=== PATIENT | male | born 2005 | race Caucasian/White ===

== ENCOUNTER 2024-03-30 10:02 | Inpatient (IN) ==
--- NOTE | 2024-03-30 10:40 | XRay Report ---
XR chest 1V portable CLINICAL HISTORY: Chest pain, nonspecific COMPARISON STUDY: No previous studies for comparison. FINDINGS: Small to moderate left pneumothorax is noted. Superior pleural separation measures 3.1 cm. There is no right pneumothorax. Lungs are clear. Cardiac size is normal. Mediastinal contours are nor mal. IMPRESSION: Small to moderate left pneumothorax. Superior pleural separation of 3.1 cm. ACT 112: Negative or not required by law. Electronically signed by: Rambo Fierro M.D. 03/30/2024 10:38 AM
[2024-03-30 10:44] LABS: Basophils # (auto) 0.05 K/uL (0.00-0.20); Basophils % (auto) 0.5 %; Eosinophils # (auto) 0.22 K/uL (0.00-0.50); Eosinophils % (auto) 2.1 %; Hematocrit (blood only) 47.2 % (42.0-52.0); Hemoglobin 16.1 g/dl (14.0-18.0); Immature Granulocytes # (auto) 0.02 K/uL (0.01-0.20); Immature Granulocytes % (auto) 0.2 %; Lymphocytes # (auto) 2.64 K/uL (1.20-3.40); Lymphocytes % (auto) 25.3 %; Mean Corpuscular Hemoglobin 29.2 pg (25.0-34.0); Mean Corpuscular Hgb Conc 34.1 g/dL (32.0-36.0); Mean Corpuscular Volume 85.7 fL (80.0-100.0); Mean Platelet Volume 8.4 fL (9.4-12.4); Monocytes # (auto) 0.79 K/uL (0.11-0.59); Monocytes % (auto) 7.6 %; Neutrophils # (auto) 6.73 K/uL (1.40-6.50); Neutrophils % (auto) 64.3 %; Platelet Count 361 K/uL (130-400); RDW Coefficient of Variation 11.9 % (11.5-14.5); RDW Standard Deviation 37.5 fL (36.4-46.3); Red Blood Count 5.51 M/uL (4.70-6.10); White Blood Count 10.45 K/ul (4.8-10.8)
[2024-03-30 11:02] LABS: Alanine Aminotransferase 11 U/L (7-52); Albumin Level 5.1 gm/dl (3.4-5.0); Alkaline Phosphatase 77 U/L (34-104); Anion Gap 7 (3-11); Aspartate Aminotransferase 16 U/L (13-39); BUN Creatinine Ratio 12.6 (10-20); Bilirubin,Total 1.3 mg/dl (0.2-1.0); Blood Urea Nitrogen 13 mg/dl (6-23); Calcium 9.7 mg/dl (8.6-10.3); Carbon Dioxide 26 mmol/L (21-32); Chloride 107 mmol/L (98-107); Creatinine Clr Calc Pharmacy 96.6 ml/min; Est GFR (African American) 120.6 ml/min; Est GFR (Non-African American) 104.1 ml/min; Globulin 2.5 gm/dl (2.5-4.0); Glucose 88 mg/dl (70-99(Fasting)); Potassium 3.8 mmol/L (3.5-5.1); Sodium 140 mmol/L (136-145); Total Protein 7.6 gm/dl (6.0-8.3)
[2024-03-30 11:05] LABS: Partial Thromboplastin Ratio 1.1; Partial Thromboplastin Time 30 Seconds (21-31); Prothrombin Time 11.2 Seconds (9.0-12.0)
--- NOTE | 2024-03-30 11:05 | Emergency Department Note ---
Impression & Plan Pneumothorax, Pleurisy, Migraines ED Provider Note NAME: ANNITA BOATENG AGE: 18 SEX: M : 2005 ARRIVES VIA: Ambulance INFORMANT: Patient, ED PROVIDER(S): Darien Ta MD CHIEF COMPLAINT: Chest pain MEDICAL DECISION MAKING: Patient presents due to concern for chest pain. IV was established and blood work was obtained along with a chest x-ray. The patient's chest x-ray does show a left-sided pneumothorax. Patient's blood work shows a normal white count H&H and platelet count. The patient was placed on nonrebreather. Kidney function is unremarkable with normal electrolytes. Bilirubin 1.3 troponin negative. Patient does appear to be comfortable. I did speak with Dr. Boggs with pulmonology who is agreeable to admit the patient with a repeat chest x-ray in about 4 hours. If it does expand would consider placing a chest tube at that time. Subsequently did speak with the on-call hospitalist service Dr. Ervin and the patient was admitted to the medicine service. Discussion w/ other healthcare providers: Dr. Mann with pulmonology Dr. Ervin with inpatient medicine service Prior /Outside records reviewed: None Differential diagnosis: Cardiac ischemia, aortic dissection, pulmonary embolism, pneumothorax, pneumonia, pericarditis, myocarditis, GERD, cholecystitis, pancreatitis, musculoskeletal, as well as other pathologies were considered. Diagnostics, as interpreted by me: ECG: Blood normal sinus rhythm, rate of 90, normal intervals, normal axis no ST elevations or TWI Cardiac monitoring: An order was placed for continuous cardiac monitoring. The monitor shows a rate of 85 with sinus rhythm. Patient was placed on pulse oximetry Medical decision rules: Heart score, Wells score Imaging studies: I informally interpreted the patient's chest x-ray does show left-sided pneumothorax with formal report to follow. HPI: Patient presents due to concern for chest pain and pain with breathing. The patient states that he was playing videogames at his desk last night and then developed some left-sided back discomfort subsequently left shoulder pain and then left-sided chest pain. The patient states that it would hurt to sleep on his left side was more comfortable on his right side. Patient denies any shortness of breath. No leg swelling or calf pain. 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 Patient was seen at urgent care and did have an x-ray performed and was referred here for further evaluation and treatment due to concern for possible pneumothorax. The patient denies any smoking alcohol or drug use. Patient does admit that if he has coughed recently he has had pain with coughing but denies any coughing fit or sneezing with subsequent pain. Patient denies any leg swelling. The patient states that he did fly here about 2 weeks ago. PAST MEDICAL HISTORY: Migraines PAST SURGICAL HISTORY: No pertinent past surgical history SOCIAL HISTORY: Patient denies alcohol tobacco or drug use. Student at the [employer]. HOME MEDICATIONS: See Below ALLERGIES: See Below VITALS: See Below PHYSICAL EXAMINATION: GENERAL: NAD, non-toxic. EYE EXAM: Normal conjunctiva. PERRL, no anisocoria and EOM's grossly intact w/o pain. OROPHARYNX: Moist mucus membranes, grossly normal dentition. NECK: Trachea midline, no stridor. LUNGS: Slightly diminished at the left apex. Normal chest wall mechanics. No increased work of breathing. Chest: No crepitus over the chest. HEART: NSR, no MRG. ABDOMEN: Abdomen soft, non-tender, no masses, no rebound or guarding. BACK: No CVA TTP. SKIN: No rashes and no bruising. UPPER EXTREMITIES: Upper extremities are grossly normal. LOWER EXTREMITIES: Grossly normal, no edema. Negative Homans' sign bilaterally NEURO EXAM: A&O x3, cranial nerves II-XII grossly intact, normal speech, moves all 4 extremities. Past Med/Surg History Problem List (Updated 03/30/24 @ 18:38 by Darien Ta MD) Chest tube in place Pleurisy (Acute) Spontaneous pneumothorax Migraines (Acute) Pneumothorax (Acute) Social History Smoking Status: Never smoker Hx Alcohol Use: No Hx Substance Use: No Preferred Language: Guyanese Landscape Nurseryman Required: No Beliefs That Will Affect Care: None Current Living Situation: Other Current Living Situation Comment: college Other Information That Helps Us Care for You: No Feels Safe at Home: Yes Safety Concerns: Feels Safe At This Time Assistive Devices: None Allergies Allergies Allergy/AdvReac Type Severity Reaction Status Date / Time No Known Allergies Allergy Unverified 03/30/24 14:54 Home Meds Home Medications Medication Instructions Recorded Confirmed rizatriptan 10 mg tablet 10 mg ONCE PRN Migraine Headache 03/30/24 03/30/24 topiramate 25 mg tablet 50 mg HS 03/30/24 03/30/24 Results & Data (ED) Vital Signs Vital Signs - 24 hr 03/30/24 09:55 03/30/24 10:09 03/30/24 10:09 Temperature 36.6 C Temperature Source Oral Pulse Rate 82 Respiratory Rate 16 Respiratory Effort / Characteristics Non-Labored Respiratory Depth Normal Respiratory Pattern Regular Blood Pressure 121/77 Blood Pressure Mean 91 Pulse Oximetry 98 Oxygen Delivery Method Room Air Oxygen Flow Rate Sepsis Recent Fever Within 48 Hours No Sepsis New/Unexplained Change in Mental Status N/A Sepsis Action Taken by Nursing No Action Required 03/30/24 10:09 03/30/24 10:15 03/30/24 10:15 Temperature 36.6 C Temperature Source Temporal Artery Scan Pulse Rate 88 Respiratory Rate Respiratory Effort / Characteristics Respiratory Depth Respiratory Pattern Blood Pressure Blood Pressure Mean Pulse Oximetry 99 Oxygen Delivery Method Room Air Oxygen Flow Rate Sepsis Recent Fever Within 48 Hours Sepsis New/Unexplained Change in Mental Status Sepsis Action Taken by Nursing 03/30/24 10:17 03/30/24 11:15 03/30/24 11:30 Temperature Temperature Source Pulse Rate 88 69 68 Respiratory Rate 16 14 Respiratory Effort / Characteristics Respiratory Depth Respiratory Pattern Blood Pressure 118/73 117/81 Blood Pressure Mean 88 93 Pulse Oximetry 100 100 Oxygen Delivery Method Non-rebreather Non-rebreather Oxygen Flow Rate 15 15 Sepsis Recent Fever Within 48 Hours Sepsis New/Unexplained Change in Mental Status Sepsis Action Taken by Nursing 03/30/24 12:00 03/30/24 12:35 Temperature Temperature Source Pulse Rate 72 70 Respiratory Rate 14 18 Respiratory Effort / Characteristics Respiratory Depth Respiratory Pattern Blood Pressure 115/78 Blood Pressure Mean 90 Pulse Oximetry 100 99 Oxygen Delivery Method Non-rebreather Non-rebreather Oxygen Flow Rate 15 15 Sepsis Recent Fever Within 48 Hours Sepsis New/Unexplained Change in Mental Status Sepsis Action Taken by [facility] Medications Current Medication List: was personally reviewed by me Laboratory Data Attestation: I reviewed the patient's lab results. 03/30/24 10:10 03/30/24 10:10 Lab Results 03/30/24 Range/Units 10:10 WBC 10.45 (4.8-10.8) K/ul RBC 5.51 (4.70-6.10) M/uL Hgb 16.1 (14.0-18.0) g/dl Hct 47.2 (42.0-52.0) % MCV 85.7 (80.0-100.0) fL MCH 29.2 (25.0-34.0) pg MCHC 34.1 (32.0-36.0) g/dL RDW Std Deviation 37.5 (36.4-46.3) fL RDW Coeff of Kiley 11.9 (11.5-14.5) % Plt Count 361 (130-400) K/uL MPV 8.4 L (9.4-12.4) fL Immature Gran % (Auto) 0.2 % Neut % (Auto) 64.3 % Lymph % (Auto) 25.3 % Seneca % (Auto) 7.6 % Eos % (Auto) 2.1 % Baso % (Auto) 0.5 % Neut # (Auto) 6.73 H (1.40-6.50) K/uL Lymph # (Auto) 2.64 (1.20-3.40) K/uL Seneca # (Auto) 0.79 H (0.11-0.59) K/uL Eos # (Auto) 0.22 (0.00-0.50) K/uL Baso # (Auto) 0.05 (0.00-0.20) K/uL Immature Gran # (Auto) 0.02 (0.01-0.20) K/uL PT 11.2 (9.0-12.0) Seconds INR 1.0 (0.9-1.1) APTT 30 (21-31) Seconds PTT Ratio 1.1 Sodium 140 (136-145) mmol/L Potassium 3.8 (3.5-5.1) mmol/L Chloride 107 (98-107) mmol/L Carbon Dioxide 26 (21-32) mmol/L Anion Gap 7 (3-11) BUN 13 (6-23) mg/dl Creatinine 1.03 (0.6-1.4) mg/dl Est Cr Clr Drug Dosing 96.6 ml/min Est GFR ( Amer) 120.6 ml/min Est GFR (Non-Af Amer) 104.1 ml/min BUN/Creatinine Ratio 12.6 (10-20) Glucose 88 (70-99(Fasting)) mg/dl Calcium 9.7 (8.6-10.3) mg/dl Total Bilirubin 1.3 H (0.2-1.0) mg/dl AST 16 (13-39) U/L ALT 11 (7-52) U/L Alkaline Phosphatase 77 (34-104) U/L Troponin I High Sens < 2.3 (0-20) pg/ml Total Protein 7.6 (6.0-8.3) gm/dl Albumin 5.1 H (3.4-5.0) gm/dl Globulin 2.5 (2.5-4.0) gm/dl Albumin/Globulin Ratio 2.0 (0.9-2) Administered Medications Acetaminophen (Acetaminophen 500 Mg Tab) 1,000 mg PO Q8H PRN PRN Reason: pain or fever Stop: 04/29/24 14:36 Last Admin: 03/30/24 15:14 Dose: 1,000 mg Documented By: ARSENIO Oxycodone HCl (Oxycodone Hcl Ir 5 Mg Tab (Immediate Release)) 5 mg PO Q6H PRN PRN Reason: Severe Pain (Scale 7, 8, 9,10) Stop: 04/13/24 17:00 Last Admin: 03/30/24 17:55 Dose: 5 mg Documented By: ARSENIO Discontinued Medications Lidocaine HCl (Lidocaine 2% Local 50 Ml Vial) Confirm Administered Dose 50 ml .ROUTE .STK-MED ONE Stop: 03/30/24 16:10 Last Admin: 03/30/24 17:00 Dose: 20 ml Documented By: CURTIS Morphine Sulfate (Morphine Sulfate 2 Mg/Ml Carp) Confirm Administered Dose 2 mg .ROUTE .STK-MED ONE Stop: 03/30/24 16:24 Last Admin: 03/30/24 16:26 Dose: 2 mg Documented By: CURTIS Morphine Sulfate (Morphine Sulfate 2 Mg/Ml Carp) Confirm Administered Dose 2 mg .ROUTE .STK-MED ONE Stop: 03/30/24 16:40 Last Admin: 03/30/24 16:41 Dose: 2 mg Documented By: CURTIS Morphine Sulfate (Morphine Sulfate 4 Mg/Ml 1 Ml Carp\Vial) 4 mg IV NOW STA Stop: 03/30/24 17:00 Last Admin: 03/30/24 17:08 Dose: Not Given Documented By: [facility] Imaging Data Radiologist's Impression: Chest X-Ray 03/30/24 10:15 XR chest 1V portable CLINICAL HISTORY: Chest pain, nonspecific COMPARISON STUDY: No previous studies for comparison. FINDINGS: Small to moderate left pneumothorax is noted. Superior pleural separation measures 3.1 cm. There is no right pneumothorax. Lungs are clear. Cardiac size is normal. Mediastinal contours are normal. IMPRESSION: Small to moderate left pneumothorax. Superior pleural separation of 3.1 cm. ACT 112: Negative or not required by law. Electronically signed by: Rambo Fierro M.D. 03/30/2024 10:38 AM Discharge Plan Visit Data Chief Complaint: Shortness of Breath/Dyspnea Stated Complaint: POSS. PNEUMOTHORAX, ED Provider: Darien Ta Discharge Problem: Pneumothorax, Pleurisy, Migraines Patient Disposition: Admitted As Inpatient Discharge Instructions Interventions: ED Discharge Assessment Last Done: 03/30/24 14:14 Discharge Problem: Pneumothorax Qualifiers: Pneumothorax type: unspecified pneumothorax Qualified Code(s): J93.9 - Pneumothorax, unspecified Migraines Qualifiers: Migraine type: unspecified Status migrainosus presence: without status migrainosus Intractability: not intractable Qualified Code(s): G43.909 - Migraine, unspecified, not intractable, without status migrainosus
[2024-03-30 11:06] LABS: Troponin I High Sensitivity < 2.3 pg/ml (0-20)
--- NOTE | 2024-03-30 12:42 | History & Physical Report ---
Date of Service March 30, 2024 Assessment & Plan (1) Pneumothorax: (2) Migraines: Plan Pt is a 18yoM with PMhx significant for migraine headaches who presents with chest and shoulder pain concerning for spontaneous pneumothorax. Pneumothorax Pt presented with unrelenting leftsided chest and shoulder pain Associated with SOB Pt is thin, 6 ft tall. Recent airplane travel about 2 weeks ago Chest XR noting "Small to moderate left pneumothorax. Superior pleural separation of 3.1 cm" ED discussed with Pulmonology, Dr Mann who recommended repeat chest XRAY in 4 hours, chest tube if worsening Pulmonology consulted, appreciate recs Pt on nonrebreather mask, stable Continue to monitor Migraine Headaches Continue daily topamax Diet: Regular DVT prophylaxis: SCDs or ambulation as tolerated Dispo: PCU/tele History of Present Illness Chief Complaint: SOB Primary Care Provider: NO PCP Pt is a 18yoM with PMhx significant for migraine headaches who presents with chest and shoulder pain concerning for spontaneous pneumothorax. Pt states that he has been sitting at his desk most of the weekend. 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 Noticed the left sided chest pain last night while sitting at the desk, radiated to the left shoulder. States he thought the pain was related to being in an uncomfortable position so he didn't think too much of it. However it persisted, requiring him to sleep on his right side. But he states the pain would wake him up from sleep and he would have to change positions. Noticed that he was unable to take deep breaths without felling the pain and it was sometimes associated with SOB. States he spoke to his dad who recommended having it further evaluated. Notes he takes topamax daily, also prn rizatriptan for a Hx of migraine headaches. Home Medications Medication Instructions Recorded Confirmed Type rizatriptan 10 mg tablet 10 mg ONCE PRN Migraine Headache 03/30/24 03/30/24 History topiramate 25 mg tablet 50 mg HS 03/30/24 03/30/24 History Past Med/Surg History Problem List (Updated 03/30/24 @ 13:04 by Gayathri Evrin MD) Migraines Pneumothorax Social History Smoking Status: Never smoker Preferred Language: [place] Feels Safe at Home: Yes Review of Systems Review of Systems: All systems reviewed & are unremarkable except as noted in Subjective Physical Exam Physical Exam: General: Alert, oriented. No acute distress Skin: No noted rashes or bruises Psych: Appropriate mood and affect Neuro: No gross deficits HEENT: NC/AT Chest: Nontender to palpation. CV: RRR Resp: Breath sounds clear bilaterally, no increased effort of breathing however notes pain with deep breaths. Abdomen: Soft, nontender, nondistended Extremities: No edema in lower extremities bilaterally. Results & Data Results & Data Vital Signs (Past 12 Hours) Vital Signs Temp Pulse Resp BP Pulse Ox O2 Del Method O2 Flow Rate 03/30/24 12:00 72 14 100 Non-rebreather 15 03/30/24 11:30 68 14 117/81 100 Non-rebreather 15 03/30/24 11:15 69 16 118/73 100 Non-rebreather 15 03/30/24 10:17 88 03/30/24 10:15 88 99 03/30/24 10:15 Room Air 03/30/24 10:09 36.6 C 03/30/24 10:09 Room Air 03/30/24 09:55 36.6 C 82 16 121/77 98 Diagnostic Findings Chest X-Ray 03/30/24 10:15 XR chest 1V portable CLINICAL HISTORY: Chest pain, nonspecific COMPARISON STUDY: No previous studies for comparison. FINDINGS: Small to moderate left pneumothorax is noted. Superior pleural separation measures 3.1 cm. There is no right pneumothorax. Lungs are clear. Cardiac size is normal. Mediastinal contours are normal. IMPRESSION: Small to moderate left pneumothorax. Superior pleural separation of 3.1 cm. ACT 112: Negative or not required by law. Electronically signed by: Rambo Fierro M.D. 03/30/2024 10:38 AM
--- NOTE | 2024-03-30 12:52 | Electrocardiogram Report ---
Test Reason : Blood Pressure : / mmHG Vent. Rate : 090 BPM Atrial Rate : 090 BPM P-R Int : 126 ms QRS Dur : 096 ms QT Int : 334 ms P-R-T Axes : 077 080 066 degrees QTc Int : 408 ms Normal sinus rhythm Minor Anterior ST elevation, most consistent with repolarization variant Diffuse Minor Nonspecific T wave abnormality Abnormal ECG No previous ECGs available Confirmed by Benjamin Thakkar ([id number]) on 03/30/2024 12:52:27 PM Referred By: Confirmed By:Benjamin Thakkar
--- NOTE | 2024-03-30 15:05 | XRay Report ---
XR chest 1V portable CLINICAL HISTORY: follow up ptx TECHNIQUE: Single frontal radiograph of the chest was obtained. Comparison: Comparison is made to chest radiograph 03/30/2024 FINDINGS: No lines and tubes are seen. The cardiomediastinal silhouette is normal. Left apical pneumothorax has enlarged measuring 40 mm compared to 31 mm in prior exam. No evidence of pleural effusion or pneumot horax. IMPRESSION: Interval enlargement of left apical pneumothorax. ACT 112: Negative or not required by law. Electronically signed by: Pepe Jerome M.D. 03/30/2024 3:03 PM
[2024-03-30] MEDS: ACETAMINOPHEN 500 MG TAB PO PRN (15:14)
[2024-03-30] MEDS: MoRPHine SULFATE 2 MG/ML CARP ONE ×2 (16:26→16:41)
--- NOTE | 2024-03-30 16:48 | XRay Report ---
XR chest 1V portable CLINICAL HISTORY: s/p chest tupe placement TECHNIQUE: Single frontal radiograph of the chest was obtained. Comparison: Comparison is made to chest radiograph 03/22/2024 FINDINGS: Left chest tube projects over the thoracic cavity. The cardiomediastinal silhouette is normal. The ibeth ngs are clear. No evidence of pleural effusion or pneumothorax. IMPRESSION: Interval placement of a left chest tube with interval resolution of previously noted pneumothorax. ACT 112: Negative or not required by law. Electronically signed by: Pepe Jerome M.D. 03/30/2024 4:47 PM
--- NOTE | 2024-03-30 16:59 | Procedure Note ---
Procedure Note Date of Service March 30, 2024 Note Left apical PIGTAIL CATHETER PLACEMENT NOTE: Procedure: Pigtail Catheter Chest Tube Placement Indication: Apical pneumo Anesthesia: 20 mL lidocaine 1% Written consent was obtained and placed on the chart. Timeout was done prior to the procedure. Initially I attempted placement of an arrow pneumothorax catheter and was unsuccessful. I did prepped the site with chlorhexidine. Appropriate draping was utilized. Gown and sterile gloves were donned. Lung point was localized with ultrasound. Area was anesthetized with 1% lidocaine without epinephrine. I was easily able to find the air pocket. A small incision was made with a size 11 scalpel. I then tried to introduce the pneumothorax arrow catheter over the needle apparatus. I had tremendous difficulty in threatening the catheter. At 1 point I was able to thread the catheter balance 2 inches and was able to aspirate air, but then the catheter coiled. I had to abort this procedure and went to 1 rib space below and then utilized a Seldinger technique with a pigtail catheter as noted below. Utilizing bedside ultrasound, chest wall was evaluated for location for optimal chest tube placement. Location between the second and third ribs were marked on the skin using gentle pressure. The left sided chest wall was prepped with chlorhexidine and draped in the typical sterile fashion. 10 mL of 1% Lidocaine without epinephrine was used to anesthetize the skin down to the dorsal surface of the second rib. Air return confirmed entry into the pleural space. Lidocaine was injected into the pleural space for increased anesthetization. Introducer needle on syringe was inserted in perpendicular fashion taking care to ride just above the dorsal surface of the second rib. Entry into the pleural space was heralded by air return into the syringe while under gentle aspiration. Guide wire was advanced into the pleural space without resistance and the introducer needle was subsequently removed. Scalpel was used to make small incision of the superficial tissue, parallel to the direction of the rib anatomy. Dilator was advanced uneventfully over the guide wire into the pleural space. 14 Slovenian Pigtail Catheter was inserted into the pleural space. Inner introducer and guide wire were removed. Drain was immediately connected to pre-prepared BLADIMIR pleur- evac system. Pigtail was sutured securely in place and sterile dressing was applied. Chest tube was placed to -20 cmH2O suction. Patient tolerated procedure well. Blood Loss: Minimal Complications: None Post procedure Chest X-ray was ordered and reviewed by myself which demonstrated adequate placement. Coding CPT Codes Pulmonary/Thoracic - Pulmonary and Thoracic: 68001 Tube thoracostomy ([id number]) Pulmonary/Thoracic - Pulmonary and Thoracic: 27896 US, Chest, real time with imaging documentation ([id number]) [facility] [place] Procedure Codes (Charges) Pulmonary/Thoracic Procedure 1: Pulmonary and Thoracic: 61563 Tube thoracostomy Procedure 2: Pulmonary and Thoracic: 36847 US, Chest, real time with imaging documentation
[2024-03-30] MEDS: LIDOCAINE 2% LOCAL 50 ML VIAL ONE (17:00)
[2024-03-30] MEDS: MoRPHine SULFATE 4 MG/ML 1 ML CARP\\VIAL IV STA (17:08)
--- NOTE | 2024-03-30 17:14 | Pulmonary Consultation ---
Date of Consultation March 30, 2024 Assessment & Plan (1) Spontaneous pneumothorax: (2) Pleurisy: (3) Chest tube in place: Plan 18-year-old male with a primary spontaneous pneumothorax with no significant past medical history who presents to the hospital due to worsening chest pain. Pneumothorax expanded despite being on nonrebreather to 4 cm. Proceeded with a 14 Mongolian pigtail catheter placement in the third intercostal space. Follow-up chest x-ray status post pigtail catheter placement reveals resolution of pneumothorax. Will continue chest tube to -20 cm H2O suction. Will place the patient on waterseal and then clamping trials in the morning if x-ray reveals continued resolution of pneumothorax. Ibuprofen and Tylenol ordered for mild pain. Oxycodone ordered for more severe pain. Will defer further IV opiates to primary team if patient has worsening pain. Please keep the patient at bedrest at this time. Thank you for the consult. Pulmonary will continue to follow. History of Present Illness Reason for Consultation: Left apical pneumothorax Attending Physician: Gayathri Ervin MD History of Present Illness 18-year-old male with no significant past medical history other than migraines who presented to the hospital due to sudden chest pain that occurred last night. Pain minimally improved, but then abruptly became worse this morning and patient was urged to go to the ER by his dad. 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 He is originally from [place]. He denies any history of pulmonary disease including asthma, prior pneumothorax, tobacco abuse or vaping. He denies any trauma. He does note scuba diving several months ago, but denies any issues. He did travel on a plane about 2 weeks ago. Initial chest x-ray revealed approximately 3 cm pneumothorax. Chest x-ray 4 hours later revealed an expanding edema to 4 cm. Patient was clearly symptomatic with pain in his chest despite being on nonrebreather. We elected to proceed with a chest tube insertion to aspirate the pneumothorax. Risks and benefits were discussed with the patient and consent was signed Allergies Allergy/AdvReac Type Severity Reaction Status Date / Time No Known Allergies Allergy Unverified 03/30/24 14:54 Home Medications Medication Instructions Recorded Confirmed Type rizatriptan 10 mg tablet 10 mg ONCE PRN Migraine Headache 03/30/24 03/30/24 History topiramate 25 mg tablet 50 mg HS 03/30/24 03/30/24 History Patient History Social History Smoking Status: Never smoker Hx Alcohol Use: No Hx Substance Use: No Preferred Language: Portuguese Prestidigitator Required: No Beliefs That Will Affect Care: None Current Living Situation: Other Current Living Situation Comment: college Other Information That Helps Us Care for You: No Feels Safe at Home: Yes Safety Concerns: Feels Safe At This Time Assistive Devices: None Review of Systems Review of Systems: All systems reviewed & are unremarkable except as noted in HPI & below Physical Exam 2 Physical Exam: Constitutional: Patient appears to be of their stated age. Patient is in no apparent distress. Patient is well-developed. Eyes: Pupils are equal round and reactive to light. Conjunctivae are normal. Anicteric sclera. Ears nose, mouth and throat: No perioral cyanosis. Neck: Trachea is midline. Visual inspection is normal. Respiratory: Mildly diminished on the left. Clear to auscultation elsewhere. Cardiovascular: Regular rate and rhythm. No murmurs. No edema. Gastrointestinal: Normal bowel sounds, soft, nontender and nondistended. No hepatosplenomegaly noted. Musculoskeletal: No cyanosis. Patient is able to move all extremities. Strength is 5 out of 5 in the upper and lower extremities. Skin: No rashes, warm dry and intact. Neurologic: No obvious focal neurological deficits seen. Psychiatric: Alert and oriented x3 with a euthymic affect. Results & Data Results & Data Vital Signs (Past 12 Hours) Vital Signs Temp Pulse Resp BP Pulse Ox O2 Del Method O2 Flow Rate 03/30/24 17:05 97 H 22 03/30/24 17:00 93 H 23 03/30/24 16:55 108/80 03/30/24 16:55 95 H 20 03/30/24 16:50 127/73 03/30/24 16:50 99 H 22 100 03/30/24 16:45 116/73 03/30/24 16:45 101 H 19 100 03/30/24 16:40 107/73 03/30/24 16:40 93 H 22 100 03/30/24 16:35 121/90 03/30/24 16:35 118 H 16 100 03/30/24 16:30 95 H 17 100 03/30/24 16:30 117/78 03/30/24 16:25 138/84 03/30/24 16:25 138/84 03/30/24 16:25 127 H 23 100 03/30/24 16:20 128/82 03/30/24 16:20 111 H 32 H 100 03/30/24 16:15 105 H 20 100 03/30/24 16:15 126/78 03/30/24 16:10 126/76 03/30/24 16:10 97 H 22 100 03/30/24 16:05 125/78 03/30/24 16:05 104 H 25 H 100 03/30/24 16:00 123/81 03/30/24 16:00 96 H 28 H 100 03/30/24 15:55 123/83 03/30/24 15:55 100 H 18 100 03/30/24 15:50 120/85 03/30/24 15:50 84 27 H 100 03/30/24 15:45 130/82 03/30/24 15:45 83 17 100 03/30/24 15:44 79 15 100 03/30/24 15:44 128/80 03/30/24 15:40 72 14 03/30/24 15:35 83 19 03/30/24 15:30 69 16 03/30/24 15:25 65 16 03/30/24 15:20 69 15 03/30/24 15:15 86 13 03/30/24 15:10 67 14 03/30/24 15:06 67 14 03/30/24 14:55 Oxymask, Non-rebreather 15 03/30/24 14:15 67 16 97 03/30/24 14:10 67 12 100 03/30/24 14:05 67 18 100 03/30/24 14:00 65 18 122/67 100 Non-rebreather 15 03/30/24 13:30 62 19 120/70 100 Non-rebreather 15 03/30/24 13:00 68 16 116/65 100 Non-rebreather 15 03/30/24 12:35 70 18 115/78 99 Non-rebreather 15 03/30/24 12:00 72 14 100 Non-rebreather 15 03/30/24 11:30 68 14 117/81 100 Non-rebreather 15 03/30/24 11:15 69 16 118/73 100 Non-rebreather 15 03/30/24 10:17 88 03/30/24 10:15 88 99 03/30/24 10:15 Room Air 03/30/24 10:09 36.6 C 03/30/24 10:09 Room Air 03/30/24 09:55 36.6 C 82 16 121/77 98 PG Care Time/CCT Total # of Minutes Spent Total Time Spent with Patient: Total time spent is greater than 50% in coordination of care (as documented) at patient's floor/unit and/or counseling patient: Coding Level of Care Code 66507 IN/OBS CONSULT LVL 5,80M Diagnoses Spontaneous pneumothorax J93.83 Pleurisy R09.[address] Z96.89
[2024-03-30] MEDS: oxyCODONE HCL IR 5 MG TAB (IMMEDIATE RELEASE) PO PRN (17:55)
[2024-03-30] MEDS: TOPIRAMATE 50 MG TAB PO SCH (20:25)
[2024-03-30] MEDS: IBUPROFEN 200 MG TAB PO PRN (20:25)
--- NOTE | 2024-03-31 08:05 | Pulmonology Progress Note ---
Date of Service March 31, 2024 Assessment & Plan (1) Spontaneous pneumothorax: (2) Pleurisy: (3) Chest tube in place: Plan 18-year-old male with a primary spontaneous pneumothorax with no significant past medical history who presents to the hospital due to worsening chest pain. Found to have a spontaneous expanding pneumothorax on initial films. Unfortunately, it appears that he failed waterseal last night and he has a small expanding pneumothorax. Patient placed back on -20 cm of suction and will reevaluate with a chest x-ray later this morning. May reattempt waterseal and potential clamping trials later today if pneumothorax resolves on subsequent films. Ibuprofen and Tylenol ordered for mild pain. Oxycodone ordered for more severe pain. Will defer further IV opiates to primary team if patient has worsening pain. Please keep the patient at bedrest at this time. Thank you for the consult. Pulmonary will continue to follow. Admission and Anticipated Discharge Date Admission Date: March 30, 2024 Subjective Last night the patient noticed "a bubble" in his chest and slight discomfort. This morning he has 3-4 out of 10 chest pain mostly back in his scapula. He denies any shortness of breath. He has been resting in his bed for the most part. Review of Systems Review of Systems: All systems reviewed & are unremarkable except as noted in HPI & below Physical Exam Physical Exam: Constitutional: Patient appears to be of their stated age. Patient is in no apparent distress. Patient is well-developed. Eyes: Pupils are equal round and reactive to light. Conjunctivae are normal. Anicteric sclera. Ears nose, mouth and throat: No perioral cyanosis. Neck: Trachea is midline. Visual inspection is normal. Respiratory: Mildly diminished on the left. Clear to auscultation elsewhere. Apical left-sided chest tube in place. Cardiovascular: Regular rate and rhythm. No murmurs. No edema. Gastrointestinal: Normal bowel sounds, soft, nontender and nondistended. No hepatosplenomegaly noted. Musculoskeletal: No cyanosis. Patient is able to move all extremities. Strength is 5 out of 5 in the upper and lower extremities. Skin: No rashes, warm dry and intact. Neurologic: No obvious focal neurological deficits seen. Psychiatric: Alert and oriented x3 with a euthymic affect. Results & Data Results & Data Vital Signs (Past 12 Hours) Vital Signs Temp Pulse Pulse Resp BP Pulse Ox O2 Del Method 03/31/24 03:07 36.6 C 48 L 14 91/58 L 97 Room Air 03/30/24 23:14 36.4 C L 56 L 17 97/57 L 96 Room Air 03/30/24 22:00 58 L PG Care Time/CCT Total # of Minutes Spent Total Time Spent with Patient: Total time spent is greater than 50% in coordination of care (as documented) at patient's floor/unit and/or counseling patient: Coding Level of Care Code 41407 SUB INP/OBS CARE 2/35MIN Diagnoses Spontaneous pneumothorax J93.83 Pleurisy R09.[address] Z96.89
--- NOTE | 2024-03-31 08:32 | Hospitalist Progress Note ---
Date of Service March 31, 2024 Assessment & Plan (1) Pneumothorax: (2) Migraines: Plan Pt is a 18yoM with PMhx significant for migraine headaches who presents with chest and shoulder pain concerning for spontaneous pneumothorax. Pneumothorax, spontaneous Pt presented with unrelenting leftsided chest and shoulder pain Associated with SOB Pt is thin, 6 ft tall. Recent airplane travel about 2 weeks ago Chest XR on admission noting "Small to moderate left pneumothorax. Superior pleural separation of 3.1 cm" ED discussed with Pulmonology, Dr Mann who recommended repeat chest XRAY in 4 hours, chest tube if worsening Pulmonology consulted, appreciate recs -Pt on nonrebreather mask on admission, stable -Repeat chest xray 4 hours later noted expanding pneumothorax, pt still symptomatic. -Pt s/p chest tube placement by pulmonology on 03/30 -Pneumonthorax persistent at this time -Pain control, further chest tube recs and management per pulm. Continue to monitor. Migraine Headaches Continue daily topamax Diet: Regular DVT prophylaxis: SCDs Dispo: PCU/tele Admission and Anticipated Discharge Date Admission Date: March 30, 2024 Subjective Pt was seen in AM. Stated at the time he was still having occasional pain with deep breaths. Otherwise denied acute concerns. Review of Systems Review of Systems: All systems reviewed & are unremarkable except as noted in Subjective Physical Exam Physical Exam: General: Alert, oriented. No acute distress Skin: No noted rashes or bruises Psych: Appropriate mood and affect Neuro: No gross deficits HEENT: NC/AT Chest: Nontender to palpation. CV: RRR Resp: Breath sounds clear bilaterally, no increased effort of breathing however notes pain with deep breaths. Abdomen: Soft, nontender, nondistended Extremities: No edema in lower extremities bilaterally. Results & Data Results & Data Vital Signs (Past 12 Hours) Vital Signs Temp Pulse Pulse Resp BP Pulse Ox O2 Del Method 03/31/24 03:07 36.6 C 48 L 14 91/58 L 97 Room Air 03/30/24 23:14 36.4 C L 56 L 17 97/57 L 96 Room Air 03/30/24 22:00 58 L Diagnostic Findings Chest X-Ray 03/30/24 10:15 XR chest 1V portable CLINICAL HISTORY: Chest pain, nonspecific COMPARISON STUDY: No previous studies for comparison. FINDINGS: Small to moderate left pneumothorax is noted. Superior pleural separation measures 3.1 cm. There is no right pneumothorax. Lungs are clear. Cardiac size is normal. Mediastinal contours are normal. IMPRESSION: Small to moderate left pneumothorax. Superior pleural separation of 3.1 cm. ACT 112: Negative or not required by law. Electronically signed by: Rambo Fierro M.D. 03/30/2024 10:38 AM Chest X-Ray 03/30/24 14:33 XR chest 1V portable CLINICAL HISTORY: follow up ptx TECHNIQUE: Single frontal radiograph of the chest was obtained. Comparison: Comparison is made to chest radiograph 03/30/2024 FINDINGS: No lines and tubes are seen. The cardiomediastinal silhouette is normal. Left apical pneumothorax has enlarged measuring 40 mm compared to 31 mm in prior exam. No evidence of pleural effusion or pneumothorax. IMPRESSION: Interval enlargement of left apical pneumothorax. ACT 112: Negative or not required by law. Electronically signed by: Pepe Jerome M.D. 03/30/2024 3:03 PM Chest X-Ray 03/30/24 16:26 XR chest 1V portable CLINICAL HISTORY: s/p chest tupe placement TECHNIQUE: Single frontal radiograph of the chest was obtained. Comparison: Comparison is made to chest radiograph 03/22/2024 FINDINGS: Left chest tube projects over the thoracic cavity. The cardiomediastinal si lhouette is normal. The lungs are clear. No evidence of pleural effusion or pneumothorax. IMPRESSION: Interval placement of a left chest tube with interval resolution of previously noted pneumothorax. ACT 112: Negative or not required by law. Electronically signed by: Pepe Jerome M.D. 03/30/2024 4:47 PM Chest X-Ray 03/31/24 07:00 XR chest 1V portable CLINICAL HISTORY: follow up chest tube TECHNIQUE: Single frontal radiograph of the chest was obtained. Comparison: Comparison is made to chest radiograph 12/23/2023 FINDINGS: Left chest tube is seen. The cardiomediastinal silhouette is normal. The lungs are clear. Interval enlargement of the previously noted pneumothorax, now measuring 18 mm. IMPRESSION: Interval enlargement of the left pneumothorax despite stability of the chest tube. ACT 112: Negative or not required by law. Electronically signed by: Pepe Jerome M.D. 03/31/2024 2:16 PM Chest X-Ray 03/31/24 12:00 XR chest 1V portable CLINICAL HISTORY: Chest tube to suction TECHNIQUE: Single frontal radiograph of the chest was obtained. Comparison: Comparison is made to chest radiograph 03/31/2024 FINDINGS: Stable left chest tube. The cardiomediastinal silhouette is normal. The lungs are clear. Interval decrease in left pneumothorax, which now measures 6 mm compared to 18 mm in prior exam. IMPRESSION: Interval decrease in size in left pneumothorax with a left chest tube seen. ACT 112: Negative or not required by law. Electronically signed by: Pepe Jerome M.D. 03/31/2024 4:44 PM Chest X-Ray 03/31/24 16:37 SINGLE VIEW CHEST CLINICAL HISTORY: Pneumothorax status post chest tube clamping. FINDINGS: 2 AP, portable, upright chest radiographs are compared to study performed earlier the same day 03/31/2024. The cardiomediastinal silhouette is unremarkable. A left-sided chest tube is unchanged in position. A small left apical pneumothorax is increased in size from previous, with approximately 2 cm of apical pleural separation. No right-sided pneumothorax is seen. The bony thorax is grossly intact. IMPRESSION: 1. A left-sided chest tube is unchanged in position. A left apical pneumothorax has increased in size following clamping of the chest tube. 2. No airspace consolidation or pleural effusion is seen. ACT 112: Negative or not required by law. Electronically signed by: Adolfo Rocha M.D. 03/31/2024 5:27 PM (1) Pneumothorax Pneumothorax type: unspecified pneumothorax Qualified Code(s): J93.9 - Pneumothorax, unspecified (2) Migraines Intractability: not intractable Migraine type: unspecified Status migrainosus presence: without status migrainosus Qualified Code(s): G43.909 - Migraine, unspecified, not intractable, without status migrainosus
[2024-03-31 09:40] LABS: BUN Creatinine Ratio 18.3 (10-20); Calcium 9.3 mg/dl (8.6-10.3); Creatinine Clr Calc Pharmacy 89.6 ml/min; Est GFR (African American) 119.2 ml/min; Est GFR (Non-African American) 102.9 ml/min; Potassium 4.4 mmol/L (3.5-5.1)
[2024-03-31] MEDS: ONDANSETRON INJ 2 MG/ML 2 ML VIAL IV PRN (12:43)
--- NOTE | 2024-03-31 14:18 | XRay Report ---
XR chest 1V portable CLINICAL HISTORY: follow up chest tube TECHNIQUE: Single frontal radiograph of the chest was obtained. Comparison: Comparison is made to chest radiograph 12/23/2023 FINDINGS: Left chest tube is seen. The cardiomediastinal silhouette is normal. The lungs are clear. Interval en largement of the previously noted pneumothorax, now measuring 18 mm. IMPRESSION: Interval enlargement of the left pneumothorax despite stability of the chest tube. ACT 112: Negative or not required by law. Electronically signed by: Pepe Jerome M.D. 03/31/2024 2:16 PM
--- NOTE | 2024-03-31 16:45 | XRay Report ---
XR chest 1V portable CLINICAL HISTORY: Chest tube to suction TECHNIQUE: Single frontal radiograph of the chest was obtained. Comparison: Comparison is made to chest radiograph 03/31/2024 FINDINGS: Stable left chest tube. The cardiomediastinal silhouette is normal. The lungs are clear. Interval dec rease in left pneumothorax, which now measures 6 mm compared to 18 mm in prior exam. IMPRESSION: Interval decrease in size in left pneumothorax with a left chest tube seen. ACT 112: Negative or not required by law. Electronically signed by: Pepe Jerome M.D. 03/31/2024 4:44 PM
--- NOTE | 2024-03-31 17:28 | XRay Report ---
SINGLE VIEW CHEST CLINICAL HISTORY: Pneumothorax status post chest tube clamping. FINDINGS: 2 AP, portable, upright chest radiographs are compared to study performed earlier the same day 03/31/2024. The cardiomediastinal silhouette is unremarkable. A left-sided chest tube is unchanged in position. A small left apical pneumothorax is increased in size from previous, with approximately 2 cm of apical pleural separation. No right-sided pneumothorax is seen. The bony thorax is grossly i ntact. IMPRESSION: 1. A left-sided chest tube is unchanged in position. A left apical pneumothorax has increased in size following clamping of the chest tube. 2. No airspace consolidation or pleural effusion is seen. ACT 112: Negative or not required by law. Electronically signed by: Adolfo Rocha M.D. 03/31/2024 5:27 PM
--- NOTE | 2024-03-31 19:10 | Communication Note ---
Date of Service: March 31, 2024 Called to bedside by nursing via manager social media secondary to patient with feeling "air bubble" in chest and increase in pain to his scapula. This is also how patient presented. Case discussed with [employer] Dr. Mann prior to seeing patient and recommended aspiration of the pigtail. - Patient in on apparent distress on arrival- HR, BP, RR, SPO2 all within normal ranges. - Small amount of subcutaneous air noted in axillae, breath sounds throughout - Some increase in pain with deep inspiration - pigtail luer lock adapter cleansed with chlorhexidine, 30 cc Leur Lock syringe attached, stop cock rotated to allow for aspitation- total of ~85 cc of air was aspirated - Patient stated he felt better as the air was being aspirated and pain has gotten better - Cap was re-attached and the stopcock was turned to the off to patient position. - If symptoms return tonight, will reattach to chest drainage system, with short course of suction and then place to water seal. Maurice SOSA ([facility]
--- NOTE | 2024-04-01 07:43 | XRay Report ---
XR chest 1V portable HISTORY: eval for reaccumulation of pneumothorax COMPARISON: Chest 03/31/2024. FINDINGS: A left-sided chest tube is unchanged in position. A left apical pneumothorax has slightly i ncreased in size. This currently demonstrates a maximal pleural gap of 2.3 cm, previously measuring 2 cm. The lungs are clear. The heart is normal in size. No acute fractures. IMPRESSION: Slight increase in size of the small left apical pneumothorax. Left chest tube is unchanged in positi on. ACT 112: Negative or not required by law. Electronically signed by: Farhad Culver M.D. 04/01/2024 7:42 AM
--- NOTE | 2024-04-01 07:59 | XRay Report ---
XR chest 1V portable HISTORY: Evaluate pneumothorax. follow up chest tube COMPARISON: Chest 03/31/2024. FINDINGS: A left-sided chest tube is unchanged in position. The small left pneumothorax has decreased in size. This demonstrates a maximal pleural gap of 1.5 cm, previously measuring 2.3 cm. The lungs a re clear. The heart is normal in size. No mediastinal shift. IMPRESSION: Slight decrease in size in the small left apical pneumothorax. Left-sided chest tube is unchanged in position. ACT 112: Negative or not required by law. Electronically signed by: Farhad Culver M.D. 04/01/2024 7:58 AM
[2024-04-01 08:26] LABS: Albumin Globulin Ratio 1.8 (0.9-2); Albumin Level 4.3 gm/dl (3.4-5.0); BUN Creatinine Ratio 19.4 (10-20); Bilirubin,Total 1.4 mg/dl (0.2-1.0); Calcium 9.2 mg/dl (8.6-10.3); Creatinine Clr Calc Pharmacy 94.9 ml/min; Est GFR (African American) 128.1 ml/min; Est GFR (Non-African American) 110.5 ml/min; Globulin 2.4 gm/dl (2.5-4.0); Phosphorus 4.3 mg/dl (2.5-4.9); Potassium 4.3 mmol/L (3.5-5.1); Total Protein 6.7 gm/dl (6.0-8.3)
[2024-04-01 08:28] LABS: Basophils # (auto) 0.07 K/uL (0.00-0.20); Basophils % (auto) 0.7 %; Eosinophils # (auto) 0.28 K/uL (0.00-0.50); Eosinophils % (auto) 2.9 %; Hematocrit (blood only) 42.9 % (42.0-52.0); Hemoglobin 14.5 g/dl (14.0-18.0); Immature Granulocytes # (auto) 0.02 K/uL (0.01-0.20); Immature Granulocytes % (auto) 0.2 %; Lymphocytes # (auto) 2.86 K/uL (1.20-3.40); Lymphocytes % (auto) 30.1 %; Mean Corpuscular Hemoglobin 29.2 pg (25.0-34.0); Mean Corpuscular Hgb Conc 33.8 g/dL (32.0-36.0); Mean Corpuscular Volume 86.3 fL (80.0-100.0); Mean Platelet Volume 8.6 fL (9.4-12.4); Monocytes % (auto) 9.5 %; Neutrophils # (auto) 5.38 K/uL (1.40-6.50); Neutrophils % (auto) 56.6 %; Platelet Count 299 K/uL (130-400); RDW Coefficient of Variation 11.9 % (11.5-14.5); RDW Standard Deviation 37.5 fL (36.4-46.3); Red Blood Count 4.97 M/uL (4.70-6.10); White Blood Count 9.51 K/ul (4.8-10.8)
--- NOTE | 2024-04-01 08:59 | Pulmonology Progress Note ---
Date of Service April 01, 2024 Assessment & Plan (1) Spontaneous pneumothorax: (2) Pleurisy: (3) Chest tube in place: Plan 18-year-old male with a primary spontaneous pneumothorax with no significant past medical history who presents to the hospital due to worsening chest pain. Found to have a spontaneous expanding pneumothorax on initial films. Patient seems to have a mild persistent air leak. Patient placed on Heimlich valve today and will check a chest x-ray in about 4 hours. May possibly discharge the patient home today with Heimlich valve depending on how he tolerates this. Consider outpatient cell geneticist referral to evaluate for genetic connective tissue disorder such as Marfan syndrome and Deidra Taurus Dubay syndrome. Thank you for the consult. Pulmonary will continue to follow. Admission and Anticipated Discharge Date Admission Date: March 30, 2024 Subjective Patient seen and examined. Overnight he had his chest tube aspirated twice and was placed on waterseal. He continues to have mild pain around the insertion site that radiates to his scapula of the chest tube. He denies any shortness of breath. I did change out the patient's dressing today and placed a Heimlich valve on the end of the pigtail catheter. He tolerated this change well. He remains off supplemental oxygen at this time. Review of Systems Review of Systems: All systems reviewed & are unremarkable except as noted in HPI & below Physical Exam Physical Exam: Constitutional: Patient appears to be of their stated age. Patient is in no apparent distress. Patient is well-developed. Eyes: Pupils are equal round and reactive to light. Conjunctivae are normal. Anicteric sclera. Ears nose, mouth and throat: No perioral cyanosis. Neck: Trachea is midline. Visual inspection is normal. Respiratory: Mildly diminished on the left. Clear to auscultation elsewhere. Apical left-sided chest tube in place. Cardiovascular: Regular rate and rhythm. No murmurs. No edema. Gastrointestinal: Normal bowel sounds, soft, nontender and nondistended. No hepatosplenomegaly noted. Musculoskeletal: No cyanosis. Patient is able to move all extremities. Strength is 5 out of 5 in the upper and lower extremities. Skin: No rashes, warm dry and intact. Neurologic: No obvious focal neurological deficits seen. Psychiatric: Alert and oriented x3 with a euthymic affect. Results & Data Results & Data Vital Signs (Past 12 Hours) Vital Signs Temp Pulse Pulse Resp BP Pulse Ox O2 Del Method 04/01/24 07:47 36.6 C 71 21 104/53 L 100 Room Air 04/01/24 07:40 67 04/01/24 07:40 Room Air 04/01/24 03:07 36.3 C L 64 16 92/56 L 97 Room Air 03/31/24 22:38 36.4 C L 77 16 116/64 97 Room Air 03/31/24 22:00 69 PG Care Time/CCT Total # of Minutes Spent Total Time Spent with Patient: Total time spent is greater than 50% in coordination of care (as documented) at patient's floor/unit and/or counseling patient: Coding Level of Care Code 61333 SUB INP/OBS CARE 3/50MIN Diagnoses Spontaneous pneumothorax J93.83 Pleurisy R09.[address] Z96.89
--- NOTE | 2024-04-01 13:34 | XRay Report ---
XR chest 1V portable CLINICAL HISTORY: Pigtail placed to Heimlich valve TECHNIQUE: Single frontal radiograph of the chest was obtained. Comparison: Comparison is made to chest radiograph 04/01/2024 FINDINGS: Stable left chest tube. The cardiomediastinal silhouette is normal. The lungs are clear. Interval enl argement of left pneumothorax, now measuring 60 mm. IMPRESSION: Interval significant enlargement of left pneumothorax. Chest tube remains in place. ACT 112: Negative or not required by law. Electronically signed by: Pepe Jerome M.D. 04/01/2024 1:32 PM
--- NOTE | 2024-04-01 14:51 | Hospitalist Progress Note ---
Date of Service April 01, 2024 Assessment & Plan (1) Pneumothorax: (2) Migraines: Plan Pt is a 18yoM with PMhx significant for migraine headaches who presents with chest and shoulder pain concerning for spontaneous pneumothorax. Pneumothorax, spontaneous Pt presented with unrelenting leftsided chest and shoulder pain Associated with SOB Pt is thin, 6 ft tall. Recent airplane travel about 2 weeks ago Chest XR on admission noting "Small to moderate left pneumothorax. Superior pleural separation of 3.1 cm" ED discussed with Pulmonology, Dr Mann who recommended repeat chest XRAY in 4 hours, chest tube if worsening Pulmonology consulted, appreciate recs -Pt on nonrebreather mask on admission, stable -Repeat chest xray 4 hours later noted expanding pneumothorax, pt still symptomatic. -Pt s/p chest tube placement by pulmonology on 03/30 -Pneumonthorax persistent at this time -Pain control, further chest tube recs and management per pulm. Continue to monitor. Migraine Headaches Continue daily topamax Diet: Regular DVT prophylaxis: SCDs Dispo: PCU/tele Admission and Anticipated Discharge Date Admission Date: March 30, 2024 Subjective Pt was seen in the AM. Still having chest pain and shoulder pain, though improved. Review of Systems Review of Systems: All systems reviewed & are unremarkable except as noted in Subjective Physical Exam Physical Exam: General: Alert, oriented. No acute distress Skin: No noted rashes or bruises Psych: Appropriate mood and affect Neuro: No gross deficits HEENT: NC/AT Chest: Nontender to palpation. CV: RRR Resp: Breath sounds clear bilaterally, no increased effort of breathing however notes pain with deep breaths. Abdomen: Soft, nontender, nondistended Extremities: No edema in lower extremities bilaterally. Results & Data Results & Data Vital Signs (Past 12 Hours) Vital Signs Temp Pulse Pulse Resp BP Pulse Ox O2 Del Method 04/01/24 10:15 36.8 C 76 18 110/59 L 96 Room Air 04/01/24 07:47 36.6 C 71 21 104/53 L 100 Room Air 04/01/24 07:40 67 04/01/24 07:40 Room Air 04/01/24 03:07 36.3 C L 64 16 92/56 L 97 Room Air (1) Pneumothorax Pneumothorax type: unspecified pneumothorax Qualified Code(s): J93.9 - Pneumothorax, unspecified (2) Migraines Intractability: not intractable Migraine type: unspecified Status migrainosus presence: without status migrainosus Qualified Code(s): G43.909 - Migraine, unspecified, not intractable, without status migrainosus
--- NOTE | 2024-04-01 15:03 | CT Scan Report ---
CT chest diagnostic wo con CLINICAL HISTORY: persistent ptx, blebs? TECHNIQUE: Multidetector row helical CT of the chest was performed. Coronal and sagittal reformations were obtained. Automated dose lowering techniques and/or adjustment according to patient size were u tilized for this exam. CT DOSE: 319.61 mGy.cm Comparison: Comparison is made to chest radiograph 04/01/2024 FINDINGS: Lungs and pleura: There is a trace left apical pneumothorax. A left chest tube is seen. No pulmonary cysts are seen. There are a few tiny pulmonary nodules including the followin mm nodule in the right upper lobe (series 4 image 59) 3 mm nodule in the right lower lobe (image 196). Heart and pericardium: Heart size is normal. No pericardial effusion. Vessels: Unremarkable. Mediastinum and bob: Unremarkable. Chest wall and lower neck: Subcutaneous emphysema is seen in the left chest wall. Abdomen: Unremarkable. Bones: Unremarkable. IMPRESSION: No evidence of blebs. Trace pneumothorax with a chest tube in place. ACT 112: Negative or not required by law. Electronically signed by: Pepe Jerome M.D. 04/01/2024 3:02 PM
[2024-04-01] MEDS: RIZATRIPTAN BENZOATE 10 MG TAB PO PRN (16:20)
[2024-04-01] MEDS ORDERED: POLYETHYLENE (MIRALAX) 17 GM PACK PO PRN (17:01)
[2024-04-01] MEDS: DOCUSATE SODIUM 100 MG CAP PO SCH (21:24)
--- NOTE | 2024-04-02 09:25 | XRay Report ---
XR chest 1V portable HISTORY: Follow up left pneumothorax. COMPARISON: Chest 04/01/2024. FINDINGS: Left apical chest tube is unchanged in position. The tiny left apical pneumothorax remainin g. No mediastinal shift. The lungs are clear. The heart is normal in size. No pleural effusions. IMPRESSION: Tiny left apical pneumothorax again noted. The left apical chest tube is unchanged in position. ACT 112: Negative or not required by law. Electronically signed by: Farhad Culver M.D. 04/02/2024 9:23 AM
--- NOTE | 2024-04-02 10:55 | Pulmonology Progress Note ---
Date of Service April 02, 2024 Assessment & Plan (1) Spontaneous pneumothorax: (2) Pleurisy: (3) Chest tube in place: (4) Persistent pneumothorax: Plan 18-year-old male with a primary spontaneous pneumothorax with no significant past medical history who presents to the hospital due to worsening chest pain. Found to have a spontaneous expanding pneumothorax on initial films. Patient seems to have a mild persistent air leak. Patient failed Heimlich trial and waterseal trials overnight. Chest tube hooked up to -40 cm suction at this time and will likely trial waterseal again later this afternoon. Discussed other potential interventions including VATS pleurodesis. Would consider VATS if this airleak persists for 5 to 7 days. Pain control per hospitalist service. Pain seems adequately controlled at this time. Labs discontinued as patient is otherwise healthy and has no further indications for frequent lab draws. Consider outpatient v belt inspector referral to evaluate for genetic connective tissue disorder such as Marfan syndrome and Deidra Taurus Dubay syndrome. Patient's mother and father updated. Thank you for the consult. Pulmonary will continue to follow. Admission and Anticipated Discharge Date Admission Date: March 30, 2024 Subjective Unfortunately patient noticed increasing shortness of breath and chest pain on waterseal last night. He was placed back on suction. Chest x-ray this morning with tiny left apical pneumothorax and pigtail catheter in place. Patient relatively asymptomatic this morning. Review of Systems Review of Systems: All systems reviewed & are unremarkable except as noted in HPI & below Physical Exam Physical Exam: Constitutional: Patient appears to be of their stated age. Patient is in no apparent distress. Patient is well-developed. Eyes: Pupils are equal round and reactive to light. Conjunctivae are normal. Anicteric sclera. Ears nose, mouth and throat: No perioral cyanosis. Neck: Trachea is midline. Visual inspection is normal. Respiratory: Mildly diminished on the left. Clear to auscultation elsewhere. Apical left-sided chest tube in place. Cardiovascular: Regular rate and rhythm. No murmurs. No edema. Gastrointestinal: Normal bowel sounds, soft, nontender and nondistended. No hepatosplenomegaly noted. Musculoskeletal: No cyanosis. Patient is able to move all extremities. Strength is 5 out of 5 in the upper and lower extremities. Skin: No rashes, warm dry and intact. Neurologic: No obvious focal neurological deficits seen. Psychiatric: Alert and oriented x3 with a euthymic affect. Results & Data Results & Data Vital Signs (Past 12 Hours) Vital Signs Temp Pulse Pulse Resp BP Pulse Ox O2 Del Method 04/02/24 07:57 36.6 C 57 L 21 99/60 L 98 Room Air 04/02/24 07:00 52 L 04/02/24 03:32 36.6 C 61 16 89/57 L 97 Room Air 04/01/24 23:27 62 04/01/24 23:02 Room Air PG Care Time/CCT Total # of Minutes Spent Total Time Spent with Patient: Total time spent is greater than 50% in coordination of care (as documented) at patient's floor/unit and/or counseling patient: Coding Level of Care Code 93573 SUB INP/OBS CARE 3/50MIN Diagnoses Spontaneous pneumothorax J93.83 Pleurisy R09.[address] Z96.89 Persistent pneumothorax J93.82
--- NOTE | 2024-04-02 15:02 | Hospitalist Progress Note ---
Date of Service April 02, 2024 Assessment & Plan (1) Pneumothorax: (2) Migraines: Plan Pt is a 18yoM with PMhx significant for migraine headaches who presents with chest and shoulder pain concerning for spontaneous pneumothorax. Pneumothorax, spontaneous Pt presented with unrelenting leftsided chest and shoulder pain Associated with SOB Pt is thin, 6 ft tall. Recent airplane travel about 2 weeks ago Chest XR on admission noting "Small to moderate left pneumothorax. Superior pleural separation of 3.1 cm" ED discussed with Pulmonology, Dr Mann who recommended repeat chest XRAY in 4 hours, chest tube if worsening Pulmonology consulted, appreciate recs -Pt on nonrebreather mask on admission, stable -Repeat chest xray 4 hours later noted expanding pneumothorax, pt still symptomatic. -Pt s/p chest tube placement by pulmonology on 03/30 -Pneumonthorax persistent at this time -Pain control, further chest tube recs and management per pulm. Continue to monitor. Hypotension Pt with noted low blood pressures, continued downtrend Asymptomatic Does not appear septic at this time- No leukocytosis, vitals otherwise stable Continue to monitor vitals, AM labs Elevated Liver enzymes T bili elevated 1.3 to 1.4 range Continue to monitor Pursue further workup if significant changes Migraine Headaches Continue daily topamax Diet: Regular DVT prophylaxis: SCDs Dispo: PCU/tele Admission and Anticipated Discharge Date Admission Date: March 30, 2024 Subjective pt was seen in the AM. States overnight that he had an episode of SOB, was placed back on suction. Denied symptoms at the time of the exam. Review of Systems Review of Systems: All systems reviewed & are unremarkable except as noted in Subjective Physical Exam Physical Exam: General: Alert, oriented. No acute distress Skin: No noted rashes or bruises Psych: Appropriate mood and affect Neuro: No gross deficits HEENT: NC/AT Chest: Nontender to palpation. CV: RRR Resp: Breath sounds clear bilaterally, no increased effort of breathing however notes pain with deep breaths. Abdomen: Soft, nontender, nondistended Extremities: No edema in lower extremities bilaterally. Results & Data Results & Data Vital Signs (Past 12 Hours) Vital Signs Temp Pulse Pulse Resp BP Pulse Ox O2 Del Method 04/02/24 10:57 36.3 C L 71 21 99/66 L 100 Room Air 04/02/24 07:57 36.6 C 57 L 21 99/60 L 98 Room Air 04/02/24 07:00 52 L 04/02/24 03:32 36.6 C 61 16 89/57 L 97 Room Air (1) Pneumothorax Pneumothorax type: unspecified pneumothorax Qualified Code(s): J93.9 - P neumothorax, unspecified (2) Migraines Intractability: not intractable Migraine type: unspecified Status migrainosus presence: without status migrainosus Qualified Code(s): G43.909 - Migraine, unspecified, not intractable, without status migrainosus
[2024-04-03 06:34] LABS: Hematocrit (blood only) 41.6 % (42.0-52.0); Hemoglobin 14.1 g/dl (14.0-18.0); Mean Corpuscular Hemoglobin 28.8 pg (25.0-34.0); Mean Corpuscular Hgb Conc 33.9 g/dL (32.0-36.0); Mean Corpuscular Volume 85.1 fL (80.0-100.0); Mean Platelet Volume 8.5 fL (9.4-12.4); Platelet Count 301 K/uL (130-400); RDW Coefficient of Variation 11.7 % (11.5-14.5); RDW Standard Deviation 35.8 fL (36.4-46.3); Red Blood Count 4.89 M/uL (4.70-6.10); White Blood Count 7.09 K/ul (4.8-10.8)
[2024-04-03 07:02] LABS: Albumin Globulin Ratio 1.8 (0.9-2); Albumin Level 4.2 gm/dl (3.4-5.0); BUN Creatinine Ratio 17.8 (10-20); Bilirubin,Total 1.1 mg/dl (0.2-1.0); Calcium 9.4 mg/dl (8.6-10.3); Creatinine Clr Calc Pharmacy 91.6 ml/min; Est GFR (African American) 123.5 ml/min; Est GFR (Non-African American) 106.6 ml/min; Globulin 2.4 gm/dl (2.5-4.0); Magnesium 2.1 mg/dl (1.7-2.4); Phosphorus 4.6 mg/dl (2.5-4.9); Potassium 4.4 mmol/L (3.5-5.1); Total Protein 6.6 gm/dl (6.0-8.3)
--- NOTE | 2024-04-03 08:24 | XRay Report ---
XR chest 1V portable HISTORY: Follow up left pneumothorax. COMPARISON: Chest 04/02/2024. FINDINGS: No change in the tiny left apical pneumothorax. Left-sided chest tube is unchanged in posit ion. No mediastinal shift. The lungs are clear. The heart is normal in size. IMPRESSION: No change in the tiny left apical pneumothorax. Left apical chest tube is unchanged in position. ACT 112: Negative or not required by law. Electronically signed by: Farhad Culver M.D. 04/03/2024 8:22 AM
--- NOTE | 2024-04-03 10:21 | Pulmonology Progress Note ---
Date of Service April 03, 2024 Assessment & Plan (1) Spontaneous pneumothorax: (2) Pleurisy: (3) Chest tube in place: (4) Persistent pneumothorax: Plan 18-year-old male with a primary spontaneous pneumothorax with no significant past medical history who presents to the hospital due to worsening chest pain. Found to have a spontaneous expanding pneumothorax on initial films. Left apical chest tube placed 03/30/2024. Day 5. Patient seems to have a mild persistent air leak. Waterseal trial overnight seem to be relatively successful. Small residual left apical pneumothorax noted. No air leak and [place] drainage kit. Chest tube flushed and clamped off and around 10 AM today. Will follow symptoms and potentially remove chest tube if no expansion of pneumothorax is seen on follow-up x-ray. Would consider VATS if this airleak persists for 5 to 7 days. Pain control per hospitalist service. Pain seems adequately controlled at this time. Defer labs to primary service. I see absolutely no indication for further lab draws at this time. Consider outpatient geothermal operations engineer referral to evaluate for genetic connective tissue disorder such as Marfan syndrome and Deidra Taurus Dubay syndrome. Patient's mother and father updated. Thank you for the consult. Pulmonary will continue to follow. Admission and Anticipated Discharge Date Admission Date: March 30, 2024 Subjective Patient had an uneventful night. Denies any chest pain overnight or this morning. Remained on waterseal since 7:30 PM yesterday. Review of Systems Review of Systems: All systems reviewed & are unremarkable except as noted in HPI & below Physical Exam Physical Exam: Constitutional: Patient appears to be of their stated age. Patient is in no apparent distress. Patient is well-developed. Eyes: Pupils are equal round and reactive to light. Conjunctivae are normal. Anicteric sclera. Ears nose, mouth and throat: No perioral cyanosis. Neck: Trachea is midline. Visual inspection is normal. Respiratory: Mildly diminished on the left. Clear to auscultation elsewhere. Apical left-sided chest tube in place. Cardiovascular: Regular rate and rhythm. No murmurs. No edema. Gastrointestinal: Normal bowel sounds, soft, nontender and nondistended. No hepatosplenomegaly noted. Musculoskeletal: No cyanosis. Patient is able to move all extremities. Strength is 5 out of 5 in the upper and lower extremities. Skin: No rashes, warm dry and intact. Neurologic: No obvious focal neurological deficits seen. Psychiatric: Alert and oriented x3 with a euthymic affect. Results & Data Results & Data Vital Signs (Past 12 Hours) Vital Signs Temp Pulse Pulse Resp BP Pulse Ox O2 Del Method 04/03/24 07:44 36.5 C 57 L 23 98/61 L 97 Room Air 04/03/24 03:54 36.4 C L 58 L 15 97/54 L 95 Room Air 04/02/24 23:34 66 04/02/24 23:20 36.4 C L 57 L 16 101/62 97 Room Air 04/02/24 22:38 Room Air PG Care Time/CCT Total # of Minutes Spent Total Time Spent with Patient: Total time spent is greater than 50% in coordination of care (as documented) at patient's floor/unit and/or counseling patient: Coding Level of Care Code 47411 SUB INP/OBS CARE 3/50MIN Diagnoses Spontaneous pneumothorax J93.83 Pleurisy R09.[address] Z96.89 Persistent pneumothorax J93.82
[2024-04-03] MEDS: RIZATRIPTAN BENZOATE 10 MG TAB PO ONE (13:03)
--- NOTE | 2024-04-03 13:49 | Hospitalist Progress Note ---
Date of Service April 03, 2024 Assessment & Plan (1) Pneumothorax: (2) Migraines: Plan Pt is a 18yoM with PMhx significant for migraine headaches who presents with chest and shoulder pain concerning for spontaneous pneumothorax. Pneumothorax, spontaneous Pt presented with unrelenting leftsided chest and shoulder pain Associated with SOB Pt is thin, 6 ft tall. Recent airplane travel about 2 weeks ago Chest XR on admission noting "Small to moderate left pneumothorax. Superior pleural separation of 3.1 cm" ED discussed with Pulmonology, Dr Mann who recommended repeat chest XRAY in 4 hours, chest tube if worsening Pulmonology consulted, appreciate recs -Pt on nonrebreather mask on admission, stable -Repeat chest xray 4 hours later noted expanding pneumothorax, pt was still symptomatic. -Pt s/p chest tube placement by pulmonology on 03/30 -Pneumothorax persistent at this time -further chest tube recs and management per pulm. Pain control Continue to monitor. Hypotension Pt with noted low blood pressures, continued downtrend Asymptomatic Does not appear septic at this time- No leukocytosis, vitals otherwise stable Continue to monitor vitals, AM labs Elevated Liver enzymes T bili elevated 1.3 to 1.4 range Continue to monitor Pursue further workup if significant changes Migraine Headaches Continue daily topamax, prn maxalt Diet: Regular DVT prophylaxis: SCDs Dispo: PCU/tele Admission and Anticipated Discharge Date Admission Date: March 30, 2024 Subjective Pt denies acute events overnight. Parents at bedside and updated. Review of Systems Review of Systems: All systems reviewed & are unremarkable except as noted in Subjective Physical Exam Physical Exam: General: Alert, oriented. No acute distress Skin: No noted rashes or bruises Psych: Appropriate mood and affect Neuro: No gross deficits HEENT: NC/AT Chest: Nontender to palpation. CV: RRR Resp: Breath sounds clear bilaterally, no increased effort of breathing however notes pain with deep breaths. Abdomen: Soft, nontender, nondistended Extremities: No edema in lower extremities bilaterally. Results & Data Results & Data Vital Signs (Past 12 Hours) Vital Signs Temp Pulse Resp BP Pulse Ox O2 Del Method 04/03/24 11:39 36.5 C 89 21 106/69 98 Room Air 04/03/24 07:44 36.5 C 57 L 23 98/61 L 97 Room Air 04/03/24 03:54 36.4 C L 58 L 15 97/54 L 95 Room Air (1) Pneumothorax Pneumothorax type: unspecified pneumothorax Qualified Code(s): J93.9 - Pneumothorax, unspecified (2) Migraines Intractability: not intractable Migraine type: unspecified Status migrainosus presence: without status migrainosus Qualified Code(s): G43.909 - Migraine, unspecified, not intractable, without status migrainosus
--- NOTE | 2024-04-03 15:54 | XRay Report ---
XR chest 1V portable HISTORY: s/p chest tube clamping COMPARISON: Chest 04/03/2024. FINDINGS: Left apical chest tube is unchanged in position. There is a tiny left apical pneumothorax w ith a pleural gap of 3 mm. This remains unchanged. No mediastinal shift. The lungs are clear. The hea rt is normal in size. IMPRESSION: No change in the tiny left apical pneumothorax. ACT 112: Negative or not required by law. Electronically signed by: Farhad Culver M.D. 04/03/2024 3:53 PM
--- NOTE | 2024-04-03 16:18 | Discharge Summary ---
Discharge Summary Date of Service April 03, 2024 Principal Dx & Hospital Course #1 = Principal Diagnosis (1) Pneumothorax: (2) Migraines: Plan Pt is a 18yoM with PMhx significant for migraine headaches who presents with chest and shoulder pain concerning for spontaneous pneumothorax. Pneumothorax, spontaneous Pt presented with unrelenting leftsided chest and shoulder pain Associated with SOB Pt is thin, 6 ft tall. Recent airplane travel about 2 weeks ago Chest XR on admission noting "Small to moderate left pneumothorax. Superior pleural separation of 3.1 cm" Pulmonology was consulted -Pt on nonrebreather mask on admission, stable -Repeat chest xray 4 hours later noted expanding pneumothorax, pt was still symptomatic. -Pt s/p chest tube placement by pulmonology on 03/30 -Pneumothorax remained persistent for 5 days due to a suspected mild persistent air leak -Chest tube removed on 04/03 with chest xray noting "tiny left apical pneumothorax with a pleural gap of 3 mm" at that time. Per pulmonology "Consider outpatient enterprise architect manager referral to evaluate for genetic connective tissue disorder such as Marfan syndrome and Deidra Taurus Dubay syndrome." Per pulmonology "Avoid any strenuous activity for the next 4 to 6 weeks. Avoid any changes in barometric pressure and activity such as snorkeling, scuba diving and flying for the next 6 weeks." Pain was controlled Pulmonology and PCP follow up after discharge. Hypotension Pt with noted low blood pressures, continued downtrend Asymptomatic Did not appear septic at this time- No leukocytosis, vitals otherwise stable Continue to monitor after discharge Elevated Liver enzymes T bili elevated 1.1 to 1.4 range Continue to monitor Pursue further workup if significant changes PCP followup Migraine Headaches Continue daily topamax, prn maxalt Notes For Next Care Provider Per pulmonology "Consider outpatient enterprise architect manager referral to evaluate for genetic connective tissue disorder such as Marfan syndrome and Deidra Taurus Dubay syndrome." Per pulmonology "Avoid any strenuous activity for the next 4 to 6 weeks. Avoid any changes in barometric pressure and activity such as snorkeling, scuba diving and flying for the next 6 weeks." Medication Changes From Visit None Admission HPI Per Admitting Provider Pt is a 18yoM with PMhx significant for migraine headaches who presents with [address] and shoulder pain concerning for spontaneous pneumothorax. Pt states that he has been sitting at his desk most of the weekend. 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 Noticed the left sided chest pain last night while sitting at the desk, radiated to the left shoulder. States he thought the pain was related to being in an uncomfortable position so he didn't think too much of it. However it persisted, requiring him to sleep on his right side. But he states the pain would wake him up from sleep and he would have to change positions. Noticed that he was unable to take deep breaths without felling the pain and it was sometimes associated with SOB. States he spoke to his dad who recommended having it further evaluated. Notes he takes topamax daily, also prn rizatriptan for a Hx of migraine headaches. Admission Exam Per Admitting Provider General: Alert, oriented. No acute distress Skin: No noted rashes or bruises Psych: Appropriate mood and affect Neuro: No gross deficits HEENT: NC/AT Chest: Nontender to palpation. CV: RRR Resp: Breath sounds clear bilaterally, no increased effort of breathing however notes pain with deep breaths. Abdomen: Soft, nontender, nondistended Extremities: No edema in lower extremities bilaterally. Discharge Exam General: Alert, oriented. No acute distress Skin: No noted rashes or bruises Psych: Appropriate mood and affect Neuro: No gross deficits HEENT: NC/AT Chest: Nontender to palpation. CV: RRR Resp: Breath sounds clear bilaterally, no increased effort of breathing Abdomen: Soft, nontender, nondistended Extremities: No edema in lower extremities bilaterally. Updated Medication List Medication Instructions Recorded Confirmed Type rizatriptan 10 mg tablet 10 mg ONCE PRN Migraine Headache 03/30/24 03/30/24 History topiramate 25 mg tablet 50 mg HS 03/30/24 03/30/24 History Hospital Stay Data Consultations 03/30/24 12:26 Consult Pulmonology Routine ED Decision to Admit Stat Diagnostic Imagining Performed 03/30/24 15:19 US point of care ultrasound Urgent 04/01/24 13:44 CT chest diagnostic wo con Urgent Chest X-Ray 03/30/24 10:15 XR chest 1V portable CLINICAL HISTORY: Chest pain, nonspecific COMPARISON STUDY: No previous studies for comparison. FINDINGS: Small to moderate left pneumothorax is noted. Superior pleural separation measures 3.1 cm. There is no right pneumothorax. Lungs are clear. Cardiac size is normal. Mediastinal contours are normal. IMPRESSION: Small to moderate left pneumothorax. Superior pleural separation of 3.1 cm. ACT 112: Negative or not required by law. Electronically signed by: Rambo Fierro M.D. 03/30/2024 10:38 AM Chest X-Ray 03/30/24 14:33 XR chest 1V portable CLINICAL HISTORY: follow up ptx TECHNIQUE: Single frontal radiograph of the chest was obtained. Comparison: Comparison is made to chest radiograph 03/30/2024 FINDINGS: No lines and tubes are seen. The cardiomediastinal silhouette is normal. Left apical pneumothorax has enlarged measuring 40 mm compared to 31 mm in prior exam. No evidence of pleural effusion or pneumothorax. IMPRESSION: Interval enlargement of left apical pneumothorax. ACT 112: Negative or not required by law. Electronically signed by: Pepe Jerome M.D. 03/30/2024 3:03 PM Chest X-Ray 03/30/24 16:26 XR chest 1V portable CLINICAL HISTORY: s/p chest tupe placement TECHNIQUE: Single frontal radiograph of the chest was obtained. Comparison: Comparison is made to chest radiograph 03/22/2024 FINDINGS: Left chest tube projects over the thoracic cavity. The cardiomediastinal silhouette is normal. The lungs are clear. No evidence of pleural effusion or pneumothorax. IMPRESSION: Interval placement of a left chest tube with interval resolution of previously noted pneumothorax. ACT 112: Negative or not required by law. Electronically signed by: Pepe Jerome M.D. 03/30/2024 4:47 PM Chest X-Ray 03/31/24 07:00 XR chest 1V portable CLINICAL HISTORY: follow up chest tube TECHNIQUE: Single frontal radiograph of the chest was obtained. Comparison: Comparison is made to chest radiograph 12/23/2023 FINDINGS: Left chest tube is seen. The cardiomediastinal silhouette is normal. The lungs are clear. Interval enlargement of the previously noted pneumothorax, now measuring 18 mm. IMPRESSION: Interval enlargement of the left pneumothorax despite stability of the chest tube. ACT 112: Negative or not required by law. Electronically signed by: Pepe Jerome M.D. 03/31/2024 2:16 PM Chest X-Ray 03/31/24 12:00 XR chest 1V portable CLINICAL HISTORY: Chest tube to suction TECHNIQUE: Single frontal radiograph of the chest was obtained. Comparison: Comparison is made to chest radiograph 03/31/2024 FINDINGS: Stable left chest tube. The cardiomediastinal silhouette is normal. The lungs are clear. Interval decrease in left pneumothorax, which now measures 6 mm compared to 18 mm in prior exam. IMPRESSION: Interval decrease in size in left pneumothorax with a left chest tube seen. ACT 112: Negative or not required by law. Electronically signed by: Pepe Jerome M.D. 03/31/2024 4:44 PM Chest X-Ray 03/31/24 16:37 SINGLE VIEW CHEST CLINICAL HISTORY: Pneumothorax status post chest tube clamping. FINDINGS: 2 AP, portable, upright chest radiographs are compared to study performed earlier the same day 03/31/2024. The cardiomediastinal silhouette is unremarkable. A left-sided chest tube is unchanged in position. A small left apical pneumothorax is increased in size from previous, with approximately 2 cm of apical pleural separation. No right-sided pneumothorax is seen. The bony t horax is grossly intact. IMPRESSION: 1. A left-sided chest tube is unchanged in position. A left apical pneumothorax has increased in size following clamping of the chest tube. 2. No airspace consolidation or pleural effusion is seen. ACT 112: Negative or not required by law. Electronically signed by: Adolfo Rocha M.D. 03/31/2024 5:27 PM Chest X-Ray 03/31/24 21:57 XR chest 1V portable HISTORY: eval for reaccumulation of pneumothorax COMPARISON: Chest 03/31/2024. FINDINGS: A left-sided chest tube is unchanged in position. A left apical pneum othorax has slightly increased in size. This currently demonstrates a maximal pleural gap of 2.3 cm, previously measuring 2 cm. The lungs are clear. The heart is normal in size. No acute fractures. IMPRESSION: Slight increase in size of the small left apical pneumothorax. Left chest tube is unchanged in position. ACT 112: Negative or not required by law. Electronically signed by: Farhad Culver M.D. 04/01/2024 7:42 AM Chest X-Ray 04/01/24 07:00 XR chest 1V portable HISTORY: Evaluate pneumothorax. follow up chest tube COMPARISON: Chest 03/31/2024. FINDINGS: A left-sided chest tube is unchanged in position. The small left pneumothorax has decreased in size. This demonstrates a maximal pleural gap of 1.5 cm, previously measuring 2.3 cm. The lungs are clear. The heart is normal in size. No mediastinal shift. IMPRESSION: Slight decrease in size in the small left apical pneumothorax. Left-sided chest tube is unchanged in position. ACT 112: Negative or not required by law. Electronically signed by: Farhad Culver M.D. 04/01/2024 7:58 AM Chest X-Ray 04/01/24 13:00 XR chest 1V portable CLINICAL HISTORY: Pigtail placed to Heimlich valve TECHNIQUE: Single frontal radiograph of the chest was obtained. Comparison: Comparison is made to chest radiograph 04/01/2024 FINDINGS: Stable left chest tube. The cardiomediastinal silhouette is normal. The lungs are clear. Interval enlargement of left pneumothorax, now measuring 60 mm. IMPRESSION: Interval significant enlargement of left pneumothorax. Chest tube remains in place. ACT 112: Negative or not required by law. Electronically signed by: Ppee Jerome M.D. 04/01/2024 1:[address] 04/01/24 13:44 CT chest diagnostic wo con CLINICAL HISTORY: persistent ptx, blebs? TECHNIQUE: Multidetector row helical CT of the chest was performed. Coronal and sagittal reformations were obtained. Automated dose lowering techniques and/or adjustment according to patient size were utilized for this exam. CT DOSE: 319.61 mGy.cm Comparison: Comparison is made to chest radiograph 04/01/2024 FINDINGS: Lungs and pleura: There is a trace left apical pneumothorax. A left chest tube is seen. No pulmonary cysts are seen. There are a few tiny pulmonary nodules including the followin mm nodule in the right upper lobe (series 4 image 59) 3 mm nodule in the right lower lobe (image 196). Heart and pericardium: Heart size is normal. No pericardial effusion. Vessels: Unremarkable. Mediastinum and bob: Unremarkable. Chest wall and lower neck: Subcutaneous emphysema is seen in the left chest wall. Abdomen: Unremarkable. Bones: Unremarkable. IMPRESSION: No evidence of blebs. Trace pneumothorax with a chest tube in place. ACT 112: Negative or not required by law. Electronically signed by: Pepe Jerome M.D. 04/01/2024 3:02 PM Chest X-Ray 04/02/24 08:26 XR chest 1V portable HISTORY: Follow up left pneumothorax. COMPARISON: Chest 04/01/2024. FINDINGS: Left apical chest tube is unchanged in position. The tiny left apical pneumothorax remaining. No mediastinal shift. The lungs are clear. The heart is normal in size. No pleural effusions. IMPRESSION: Tiny left apical pneumothorax again noted. The left apical chest tube is unch anged in position. ACT 112: Negative or not required by law. Electronically signed by: Farhad Culver M.D. 04/02/2024 9:23 AM Chest X-Ray 04/03/24 06:56 XR chest 1V portable HISTORY: Follow up left pneumothorax. COMPARISON: Chest 04/02/2024. FINDINGS: No change in the tiny left apical pneumothorax. Left-sided chest tube is unchanged in position. No mediastinal shift. The lungs are clear. The heart is normal in size. IMPRESSION: No change in the tiny left apical pneumothorax. Left apical chest tube is unchanged in position. ACT 112: Negative or not required by law. Electronically signed by: Farhad Culver M.D. 04/03/2024 8:22 AM Chest X-Ray 04/03/24 14:38 XR chest 1V portable HISTORY: s/p chest tube clamping COMPARISON: Chest 04/03/2024. FINDINGS: Left apical chest tube is unchanged in position. There is a tiny left apical pneumothorax with a pleural gap of 3 mm. This remains unchanged. No mediastinal shift. The lungs are clear. The heart is normal in size. IMPRESSION: No change in the tiny left apical pneumothorax. ACT 112: Negative or not required by law. Electronically signed by: Farhad Culver M.D. 04/03/2024 3:53 PM Pending Results Patient Have Any Pending Studies at Discharge: No Discharge Instructions Given to Patient (Per Discharging Provider) Henry The retail cosmetics sales beauty advisor took out your chest tube today and is recommending discharge. Please keep close followup with pulmonology and your primary care provider after discharge. Per pulmonology "Avoid any strenuous activity for the next 4 to 6 weeks. Avoid any changes in barometric pressure and activity such as snorkeling, scuba diving and flying for the next 6 weeks." Please do not hesitate to come back to the emergency room if your symptoms worsen or return. It was a pleasure taking care of you while you were here. Total Time Total Time Spent Total Time Spent (In Minutes): 75
--- NOTE | 2024-04-03 16:20 | Procedure Note ---
Procedure Note Date of Service April 03, 2024 Note Patient evaluated for chest tube removal. Verbal consent obtained prior to the procedure. Dressing was taken down. Chest tube was removed upon exhalation. Chest tube was evaluated and completely intact. Occlusive dressing was placed over the chest tube insertion site. Patient tolerated the removal of the chest tube well. Patient encouraged to walk around the hallways prior to discharge. Will follow- up with the patient in the outpatient pulmonary clinic in the next few weeks. Avoid any strenuous activity for the next 4 to 6 weeks. Avoid any changes in barometric pressure and activity such as snorkeling, scuba diving and flying for the next 6 weeks. Coding CPT Codes Pulmonary/Thoracic - Pulmonary and Thoracic: 33447 Remove lung catheter ([id number]) [facility] [place] Procedure Codes (Charges) Pulmonary/Thoracic Procedure 1: Pulmonary and Thoracic: 93850 Remove lung catheter
--- NOTE | 2024-04-04 10:32 | Pulmonology Progress Note ---
Date of Service April 04, 2024 Assessment & Plan (1) Spontaneous pneumothorax: (2) Pleurisy: (3) Chest tube in place: (4) Persistent pneumothorax: Plan 18-year-old male with a primary spontaneous pneumothorax with no significant past medical history who presents to the hospital due to worsening chest pain. Found to have a spontaneous expanding pneumothorax on initial films. -- Spontaneous left-sided pneumothorax Left apical chest tube placed 03/30/2024 --> chest tube removed 04/03/2024 Plan: No strenuous activity for at least 2 weeks No flying in the airplane for approximately 4-6 weeks No scuba diving. Patient will be at risk for spontaneous pneumothorax again. And if it happens again then he will definitely need surgical intervention. Okay for the patient to go back to work as it entitles him sitting in the front of the computer. Advised him not to lift anything heavy for the next 2-3 weeks All questions and queries of the patient as well as patient's father were answered in depth Please note the above document was generated using voice recognition software. It may contain grammatical, syntax or spelling errors.Any formal questions or concerns about the content, text or information contained within the body of this dictation should be directly addressed to the provider for clarification. Admission and Anticipated Discharge Date Admission Date: March 30, 2024 Subjective I was asked to see the patient today on the request of hospitalist as well as patient's family as they had some questions. Patient seen and examined at bedside. No acute distress, no adverse events overnight Denies any chest pain, no headache, no nausea, no vomiting Fair appetite. Patient's father was also in the room at the time of examination Review of Systems 2 Review of Systems: All systems reviewed & are unremarkable except as noted in Subjective Physical Exam 2 Physical Exam: Constitutional: No acute distress HEENT: EOMI, PERRLA Respiratory system: Good air entry bilaterally, no wheeze, no rhonchi, no crackles CVS: S1-S2 positive, no murmurs or gallops Abdomen: Soft, nontender, nondistended, positive bowel sounds x4 Extremities: +2 pulses bilaterally radialis/ dorsalis pedis, no cyanosis, no edema Neuro: Awake alert oriented x3 Psych: Normal mood and affect G/U: No Roman Skin: no rashes, warm and dry Lymphatic: no cervical or axillary lymphadenopathy Results & Data Results & Data Vital Signs (Past 12 Hours) Vital Signs Temp Pulse Pulse Resp BP Pulse Ox O2 Del Method 04/04/24 08:08 36.6 C 63 20 92/58 L 96 Room Air 04/04/24 04:41 36.4 C L 69 16 94/54 L 97 Room Air 04/04/24 00:08 58 L 04/03/24 23:59 36.5 C 64 16 95/59 L 97 Room Air Laboratory Results 04/03/24 06:08 04/03/24 06:08 PG Care Time/CCT Total # of Minutes Spent Total Time Spent with Patient: Total time spent is greater than 50% in coordination of care (as documented) at patient's floor/unit and/or counseling patient: Coding Level of Care Code 02526 SUB INP/OBS CARE 2/35MIN Diagnoses Spontaneous pneumothorax J93.83 Pleurisy R09.[address] Z96.89 Persistent pneumothorax J93.82
--- NOTE | 2024-04-04 12:55 | Discharge Summary ---
Discharge Summary Date of Service April 04, 2024 Principal Dx & Hospital Course #1 = Principal Diagnosis (1) Pneumothorax: (2) Migraines: Plan Pt is a 18yoM with PMhx significant for migraine headaches who presents with chest and shoulder pain concerning for spontaneous pneumothorax. Pneumothorax, spontaneous Pt presented with unrelenting leftsided chest and shoulder pain Associated with SOB Pt is thin, 6 ft tall. Recent airplane travel about 2 weeks ago Chest XR on admission noting "Small to moderate left pneumothorax. Superior pleural separation of 3.1 cm" Pulmonology was consulted -Pt on nonrebreather mask on admission, stable -Repeat chest xray 4 hours later noted expanding pneumothorax, pt was still symptomatic. -Pt s/p chest tube placement by pulmonology on 03/30 -Pneumothorax remained persistent for 5 days due to a suspected mild persistent air leak -Chest tube removed on 04/03 with chest xray noting "tiny left apical pneumothorax with a pleural gap of 3 mm" at that time. Per pulmonology "Consider outpatient arabic professor referral to evaluate for genetic connective tissue disorder such as Marfan syndrome and Deidra Taurus Dubay syndrome." Per pulmonology Dr Wilson on the day of discharge: No strenuous activity for at least 2 weeks. No flying in the airplane for approximately 4-6 weeks. No scuba diving. Patient will be at risk for spontaneous pneumothorax again. And if it happens again then he will definitely need surgical intervention. Okay for the patient to go back to work as it entitles him sitting in the front of the computer. Advised him not to lift anything heavy for the next 2-3 weeks" Pain was controlled Pulmonology and PCP follow up after discharge. Hypotension Pt with noted low blood pressures, continued downtrend Asymptomatic Did not appear septic at this time- No leukocytosis, vitals otherwise stable Continue to monitor after discharge Elevated Liver enzymes T bili elevated 1.1 to 1.4 range Continue to monitor Pursue further workup if significant changes PCP followup Migraine Headaches Continue daily topamax, prn maxalt Notes For Next Care Provider Per Pulmonology: "No strenuous activity for at least 2 weeks No flying in the airplane for approximately 4-6 weeks No scuba diving. Patient will be at risk for spontaneous pneumothorax again. And if it happens again then he will definitely need surgical intervention. Okay for the patient to go back to work as it entitles him sitting in the front of the computer. Advised him not to lift anything heavy for the next 2-3 weeks" Medication Changes From Visit None Admission HPI Per Admitting Provider Pt is a 18yoM with PMhx significant for migraine headaches who presents with chest and shoulder pain concerning for spontaneous pneumothorax. Pt states that he has been sitting at his desk most of the weekend. 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 Noticed the left sided chest pain last night while sitting at the desk, radiated to the left shoulder. States he thought the pain was related to being in an uncomfortable position so he didn't think too much of it. However it persisted, requiring him to sleep on his right side. But he states the pain would wake him up from sleep and he would have to change positions. Noticed that he was unable to take deep breaths without felling the pain and it was sometimes associated with SOB. States he spoke to his dad who recommended having it further evaluated. Notes he takes topamax daily, also prn rizatriptan for a Hx of migraine headaches. Admission Exam Per Admitting Provider General: Alert, oriented. No acute distress Skin: No noted rashes or bruises Psych: Appropriate mood and affect Neuro: No gross deficits HEENT: NC/AT Chest: Nontender to palpation. CV: RRR Resp: Breath sounds clear bilaterally, no increased effort of breathing however notes pain with deep breaths. Abdomen: Soft, nontender, nondistended Extremities: No edema in lower extremities bilaterally. Discharge Exam General: Alert, oriented. No acute distress Skin: No noted rashes or bruises Psych: Appropriate mood and affect Neuro: No gross deficits HEENT: NC/AT Chest: Nontender to palpation. CV: RRR Resp: Breath sounds clear bilaterally, no increased effort of breathing Abdomen: Soft, nontender, nondistended Extremities: No edema in lower extremities bilaterally. Updated Medication List Medication Instructions Recorded Confirmed Type rizatriptan 10 mg tablet 10 mg ONCE PRN Migraine Headache 03/30/24 03/30/24 History topiramate 25 mg tablet 50 mg HS 03/30/24 03/30/24 History Hospital Stay Data Consultations 03/30/24 12:26 Consult Pulmonology Routine ED Decision to Admit Stat Diagnostic Imagining Performed 03/30/24 15:19 US point of care ultrasound Urgent 04/01/24 13:44 CT chest diagnostic wo con Urgent Chest X-Ray 03/30/24 10:15 XR chest 1V portable CLINICAL HISTORY: Chest pain, nonspecific COMPARISON STUDY: No previous studies for comparison. FINDINGS: Small to moderate left pneumothorax is noted. Superior pleural separation measures 3.1 cm. There is no right pneumothorax. Lungs are clear. Cardiac size is normal. Mediastinal contours are normal. IMPRESSION: Small to moderate left pneumothorax. Superior pleural separation of 3.1 cm. ACT 112: Negative or not required by law. Electronically signed by: Rambo Fierro M.D. 03/30/2024 10:38 AM Chest X-Ray 03/30/24 14:33 XR chest 1V portable CLINICAL HISTORY: follow up ptx TECHNIQUE: Single frontal radiograph of the chest was obtained. Comparison: Comparison is made to chest radiograph 03/30/2024 FINDINGS: No lines and tubes are seen. The cardiomediastinal silhouette is normal. Left apical pneumothorax has enlarged measuring 40 mm compared to 31 mm in prior exam. No evidence of pleural effusion or pneumothorax. IMPRESSION: Interval enlargement of left apical pneumothorax. ACT 112: Negative or not required by law. Electronically signed by: Pepe Jerome M.D. 03/30/2024 3:03 PM Chest X-Ray 03/30/24 16:26 XR chest 1V portable CLINICAL HISTORY: s/p chest tupe placement TECHNIQUE: Single frontal radiograph of the chest was obtained. Comparison: Comparison is made to chest radiograph 03/22/2024 FINDINGS: Left chest tube projects over the thoracic cavity. The cardiomediastinal silhouette is normal. The lungs are clear. No evidence of pleural effusion or pneumothorax. IMPRESSION: Interval placement of a left chest tube with interval resolution of previously noted pneumothorax. ACT 112: Negative or not required by law. Electronically signed by: Pepe Jerome M.D. 03/30/2024 4:47 PM Chest X-Ray 03/31/24 07:00 XR chest 1V portable CLINICAL HISTORY: follow up chest tube TECHNIQUE: Single frontal radiograph of the chest was obtained. Comparison: Comparison is made to chest radiograph 12/23/2023 FINDINGS: Left chest tube is seen. The cardiomediastinal silhouette is normal. The lungs are clear. Interval enlargement of the previously noted pneumothorax, now measuring 18 mm. IMPRESSION: Interval enlargement of the left pneumothorax despite stability of the chest tube. ACT 112: Negative or not required by law. Electronically signed by: Pepe Jerome M.D. 03/31/2024 2:16 PM Chest X-Ray 03/31/24 12:00 XR chest 1V portable CLINICAL HISTORY: Chest tube to suction TECHNIQUE: Single frontal radiograph of the chest was obtained. Comparison: Comparison is made to chest radiograph 03/31/2024 FINDINGS: Stable left chest tube. The cardiomediastinal silhouette is normal. The lungs are clear. Interval decrease in left pneumothorax, which now measures 6 mm compared to 18 mm in prior exam. IMPRESSION: Interval decrease in size in left pneumothorax with a left chest tube seen. ACT 112: Negative or not required by law. Electronically signed by: Pepe Jerome M.D. 03/31/2024 4:44 PM Chest X-Ray 03/31/24 16:37 SINGLE VIEW CHEST CLINICAL HISTORY: Pneumothorax status post chest tube clamping. FINDINGS: 2 AP, portable, upright chest radiographs are compared to study performed earlier the same day 03/31/2024. The cardiomediastinal silhouette is unremarkable. A left-sided chest tube is unchanged in position. A small left apical pneumothorax is increased in size from previous, with approximately 2 cm of apical pleural separation. No right-sided pneumothorax is seen. The bony thorax is grossly intact. IMPRESSION: 1. A left-sided chest tube is unchanged in position. A left apical pneumothorax has increased in size following clamping of the chest tube. 2. No airspace consolidation or pleural effusion is seen. ACT 112: Negative or not required by law. Electronically signed by: Adolfo Rocha M.D. 03/31/2024 5:27 PM Chest X-Ray 03/31/24 21:57 XR chest 1V portable HISTORY: eval for reaccumulation of pneumothorax COMPARISON: Chest 03/31/2024. FINDINGS: A left-sided chest tube is unchanged in position. A left apical pneumothorax has slightly increased in size. This currently demonstrates a maximal pleural gap of 2.3 cm, previously measuring 2 cm. The lungs are clear. The heart is normal in size. No acute fractures. IMPRESSION: Slight increase in size of the small left apical pneumothorax. Left chest tube is unchanged in position. ACT 112: Negative or not required by law. Electronically signed by: Farhad Culver M.D. 04/01/2024 7:42 AM Chest X-Ray 04/01/24 07:00 XR chest 1V portable HISTORY: Evaluate pneumothorax. follow up chest tube COMPARISON: Chest 03/31/2024. FINDINGS: A left-sided chest tube is unchanged in position. The small left pneumothorax has decreased in size. This demonstrates a maximal pleural gap of 1.5 cm, previously measuring 2.3 cm. The lungs are clear. The heart is normal in size. No mediastinal shift. IMPRESSION: Slight decrease in size in the small left apical pneumothorax. Left-sided chest tube is unchanged in position. ACT 112: Negative or not required by law. Electronically signed by: Farhad Culver M.D. 04/01/2024 7:58 AM Chest X-Ray 04/01/24 13:00 XR chest 1V portable CLINICAL HISTORY: Pigtail placed to Heimlich valve TECHNIQUE: Single frontal radiograph of the chest was obtained. Comparison: Comparison is made to chest radiograph 04/01/2024 FINDINGS: Stable left chest tube. The cardiomediastinal silhouette is normal. The lungs are clear. Interval enlargement of left pneumothorax, now measuring 60 mm. IMPRESSION: Interval significant enlargement of left pneumothorax. Chest tube remains in place. ACT 112: Negative or not required by law. Electronically signed by: Pepe Jerome M.D. 04/01/2024 1:[address] 04/01/24 13:44 CT chest diagnostic wo con CLINICAL HISTORY: persistent ptx, blebs? TECHNIQUE: Multidetector row helical CT of the chest was performed. Coronal and sagittal reformations were obtained. Automated dose lowering techniques and/or adjustment according to patient size were utilized for this exam. CT DOSE: 319.61 mGy.cm Comparison: Comparison is made to chest radiograph 04/01/2024 FINDINGS: Lungs and pleura: There is a trace left apical pneumothorax. A left chest tube is seen. No pulmonary cysts are seen. There are a few tiny pulmonary nodules including the followin mm nodule in the right upper lobe (series 4 image 59) 3 mm nodule in the right lower lobe (image 196). Heart and pericardium: Heart size is normal. No pericardial effusion. Vessels: Unremarkable. Mediastinum and bob: Unremarkable. Chest wall and lower neck: Subcutaneous emphysema is seen in the left chest wall. Abdomen: Unremarkable. Bones: Unremarkable. IMPRESSION: No evidence of blebs. Trace pneumothorax with a chest tube in place. ACT 112: Negative or not required by law. Electronically signed by: Pepe Jerome M.D. 04/01/2024 3:02 PM Chest X-Ray 04/02/24 08:26 XR chest 1V portable HISTORY: Follow up left pneumothorax. COMPARISON: Chest 04/01/2024. FINDINGS: Left apical chest tube is unchanged in position. The tiny left apical pneumothorax remaining. No mediastinal shift. The lungs are clear. The heart is normal in size. No pleural effusions. IMPRESSION: Tiny left apical pneumothorax again noted. The left apical chest tube is unchanged in position. ACT 112: Negative or not required by law. Electronically signed by: Farhad Culver M.D. 04/02/2024 9:23 AM Chest X-Ray 04/03/24 06:56 XR chest 1V portable HISTORY: Follow up left pneumothorax. COMPARISON: Chest 04/02/2024. FINDINGS: No change in the tiny left apical pneumothorax. Left-sided chest tube is unchanged in position. No mediastinal shift. The lungs are clear. The heart is normal in size. IMPRESSION: No change in the tiny left apical pneumothorax. Left apical chest tube is unchanged in position. ACT 112: Negative or not required by law. Electronically signed by: Farhad Culver M.D. 04/03/2024 8:22 AM Chest X-Ray 04/03/24 14:38 XR chest 1V portable HISTORY: s/p chest tube clamping COMPARISON: Chest 04/03/2024. FINDINGS: Left apical chest tube is unchanged in position. There is a tiny left apical pneumothorax with a pleural gap of 3 mm. This remains unchanged. No mediastinal shift. The lungs are clear. The heart is normal in size. IMPRESSION: No change in the tiny left apical pneumothorax. ACT 112: Negative or not required by law. Electronically signed by: Farhad Culver M.D. 04/03/2024 3:53 PM Pending Results Patient Have Any Pending Studies at Discharge: No Discharge Instructions Given to Patient (Per Discharging Provider) Henry, The precision lens technician took out your chest tube and is recommending discharge. Please keep close followup with pulmonology and your primary care provider after discharge. Per pulmonology Dr Wilson on the day of discharge: "No strenuous activity for at least 2 weeks No flying in the airplane for approximately 4-6 weeks No scuba diving. Patient will be at risk for spontaneous pneumothorax again. And if it happens again then he will definitely need surgical intervention. Okay for the patient to go back to work as it entitles him sitting in the front of the computer. Advised him not to lift anything heavy for the next 2-3 weeks" You stated that your pain is controlled and you do not require pain medication. Please do not hesitate to come back to the emergency room if your symptoms worsen or return. It was a pleasure taking care of you while you were here. Total Time Total Time Spent Total Time Spent (In Minutes): 75
== END 2024-04-04 13:44 | disposition home or self-care (01) | DRG 200 ==
LOC: ED 10:02 → 2E 12:36